=== PATIENT | female | born 1980 | race Caucasian/White ===

== ENCOUNTER 2018-07-22 19:33 | Emergency (ER) | payer SELFPAY ==
[~2018-07-22] VITALS: Ht 175.3 cm; Wt 62.1 kg
--- NOTE | 2018-07-22 20:33 | NUR ---
called to room,not in lobby
--- NOTE | 2018-07-22 20:42 | NUR ---
found pt in lobby, pt to room now.
[2018-07-22 20:51] VITALS: BP 120/92
--- NOTE | 2018-07-22 20:51 | NUR ---
PT TO ED FOR GENERALIZED ABD PAIN, WORSE IN R LOWER QUADRANT AND RIGHT FLANK. CURRENTLY HAS BEEN DIAGNOSED WITH R HYDRONEPHROSIS. PT ALSO STATES SHE IS A PT OF DR. CONTRERAS FOR PAIN MANAGEMENT FOR KIDNEY PAIN. PT TAKES KETAMINE AND NORCO REGULARLY SINCE APRIL, RECENTLY INCREASED DOSE. PT STATES MEDS ARE JUST NOT WORKING ANYMORE. CONNECTED TO MONITORS. VSS. AT BEDSIDE. AWAITING MD ASSESSMENT AT THIS TIME. CALL LIGHT WITHIN REACH.
--- NOTE | 2018-07-22 21:18 | NUR ---
md to bedside for assessment.
== END 2018-07-22 21:51 | disposition left against medical advice (07) ==
LOC: ED 21:45
DX: R10.84 Generalized abdominal pain (principal)
CPT/HCPCS: 74021; 99283

== ENCOUNTER 2018-09-05 15:43 | Emergency (ER) | payer BC, MEDICARE ==
[~2018-09-05] VITALS: Ht 175.3 cm; Wt 56.9 kg
[2018-09-05 16:13] LABS: BASOPHILS # (AUTO) 0.03 x10^3/uL (0-0.1); BASOPHILS % (AUTO) 0 % (0-1); EOSINOPHILS # (AUTO) 0.17 x10^3/uL (0-0.4); EOSINOPHILS % (AUTO) 2 % (1-7); LYMPHOCYTES # (AUTO) 2.47 x10^3/uL (1-3.4); LYMPHOCYTES % (AUTO) 29 % (22-44); MD NO; MEAN CORPUSCULAR HEMOGLOBIN 31.6 pg (27.0-34.8); MEAN CORPUSCULAR HGB CONC 32.7 g/dL (32.4-35.8); MEAN CORPUSCULAR VOLUME 96.5 fL (80-100); MONOCYTES # (AUTO) 0.87 x10^3/uL (0.2-0.8); MONOCYTES % (AUTO) 10 % (2-9); NEUTROPHILS # (AUTO) 5.04 x10^3/uL (1.8-6.8); NEUTROPHILS % (AUTO) 59 % (42-75); PLATELET COUNT 304 x10^3/uL (130-400); RED BLOOD COUNT 4.99 x10^6/uL (3.82-5.3); RED CELL DISTRIBUTION WIDTH 15.4 % (9.6-15.2)
--- NOTE | 2018-09-05 16:25 | NUR ---
PATIENT WRITHING IN PAIN ONCE ROOMED FROM TRIAGE. US TECH AT BEDSIDE. PATIENT INITIALLY REFUSING TO GO TO TEST IF SHE IS NOT MEDICATED FIRST. US TECH CONVINCED PATIENT IMPORTANCE OF PROMPT EXAM. PATIENT AGREEABLE. PROVIDER MADE AWARE
[2018-09-05 16:26] LABS: ALANINE AMINOTRANSFERASE 22 U/L (12-78); ALBUMIN 4.2 g/dL (3.4-5.0); ANION GAP 6 mmol/L (5-15); CALCIUM 8.7 mg/dL (8.5-10.1); CHLORIDE 110 mmol/L (98-107); CREATININE 0.92 mg/dL (0.55-1.02)
[2018-09-05 16:30] LABS: ALKALINE PHOSPHATASE 117 U/L (45-117); BILIRUBIN,TOTAL 0.3 mg/dL (0.2-1.0)
--- NOTE | 2018-09-05 16:59 | NUR ---
PATIENT RETURNED FROM US. REPORTS 03/20 RLQ PAIN. HR 60, 134/76. REPORTS SHE WAS RECENTLY SEEN AT [facility] AND D/C'D WITH MUSCLE SPASM DX WHICH PATIENT AND HER MOTHER ARE QUITE UNHAPPY WITH. REPORTS PAIN AT 10 REFRATORY TO ROUGHLY 250MG OF PO KETAMINE (SCHEDULED MED) AT 1PM. PROVIDER AWARE/TO BEDSIDE. PIV DEFERRRED AT THIS TIME AFTER DISCUSSION WITH PROVIDER
[2018-09-05] MEDS ORDERED: DULO60CA7 PO (17:28)
[2018-09-05] MEDS ORDERED: GABA300C10 PO (17:28)
[2018-09-05] MEDS ORDERED: BACL-19 PO (17:28)
[2018-09-05] MEDS ORDERED: CLON2TAB PO (17:28)
[2018-09-05] MEDS ORDERED: [UNRECOGNIZED DRUG - CODE] PO (17:28)
[2018-09-05] MEDS ORDERED: ESZO2TAB22 PO (17:28)
[2018-09-05] MEDS ORDERED: PRAZ5CAP2 PO (17:28)
[2018-09-05] MEDS ORDERED: HYOS0.1268 PO (17:29)
--- NOTE | 2018-09-05 17:29 | NUR ---
PATIENT PROVIDED WITH HOT PACK TO EASE CRAMPING. MED REC UPDATED. VSS. IN BED W/ CALL ZAMBRANO IN HAND/ SIDE RAILS UP. CONTINUES TO MOAN IN PAIN RATING RLQ/RUQ ABD PAIN AT 10-PROVIDER AWARE
[2018-09-05] MEDS ORDERED: HALOPERIDOL 5 MG/ML IM ONE (17:30)
--- NOTE | 2018-09-05 18:00 | NUR ---
TO ADMIN HALDOL AFTER EKG. TECH TO BEDSIDE TO PERFORM. PATIENT REMAINS IN 10/10 PAIN (REPORTS HOT PACK NO LONGER HELPING). ON MONITOR. IN BED WITH CALL ZAMBRANO IN HAND/SIDE RAILS UP
[2018-09-05] MEDS ORDERED: HALOPERIDOL 5 MG/ML ONE (18:16)
[2018-09-05 18:33] VITALS: BP 113/82
[2018-09-05 18:53] LABS: MICROSCOPIC INDICATED
--- NOTE | 2018-09-05 19:04 | NUR ---
PAIN IMPROVED. PATIENT NO LONGER WRITHING IN PAIN (NOW SLEEPING) PROVIDER AWARE. VSS ON SCIENCE EDUCATION PROFESSOR W/ CALL ZAMBRANO IN HAND/SIDE RAILS UP.
[2018-09-05 19:16] LABS: CULTURE INDICATED? NO
--- NOTE | 2018-09-05 19:20 | NUR ---
PROVIDER TO BEDSIDE TO EXPLAIN DECISION TO DISCHARGE. PATIENT UPSET "I SPECIFICALLY CAME HERE TO GET ADMITTED TO SEE GI." PROVIDER EXPLAINED HOW THIS WAS POSSIBLE. PATIENT THEN DECIDED SHE WANTED TO LEAVE IMMEDIATELY. REFUSED TO SIGN AMA PAPERWORK. BOILER INSTALLER/PROVIDER MADE AWARE. NO PIV IN PLACE. NO NARCOTICS ADMINISTERED IN ED
[2018-09-06] MEDS ORDERED: MORP15TA PO (12:53)
[2018-09-06] MEDS ORDERED: BACL-19 PO (12:53)
[2018-09-06] MEDS ORDERED: Ketamine PO (12:53)
[2018-09-06] MEDS ORDERED: ONDA4TAB7 SL (12:53)
[2018-09-06] MEDS ORDERED: HYDR-3307 PO (12:53)
[2018-09-06] MEDS ORDERED: ZOLP-413 PO (12:53)
== END 2018-09-05 20:02 | disposition left against medical advice (07) ==
LOC: ED 19:56
DX: G89.29 Other chronic pain (principal); R10.84 Generalized abdominal pain
CPT/HCPCS: 36415; 76700; 80053; 81001; 83690; 84703; 85025; 93005; 96372; 99284; J1630

== ENCOUNTER 2018-09-06 04:48 | Inpatient (IN) | payer BC, MEDICARE ==
[~2018-09-06] VITALS: Ht 177.8 cm; Wt 61.4 kg
[~2018-09-06 04:48] MED LIST: BACL-19 PO; CLON2TAB PO; DULO60CA7 PO; ESZO2TAB22 PO; GABA300C10 PO; HYOS0.1268 PO; PRAZ5CAP2 PO; [UNRECOGNIZED DRUG - CODE] PO
--- NOTE | 2018-09-06 04:53 | NUR ---
pt xena from hospital last evening
--- NOTE | 2018-09-06 05:21 | NUR ---
PT. BIB [facility] FOR C/O ABD PAIN SINCE ; PT. REPORTS PAIN HAS BEEN 24/7 SINCE JUL. PT. IS SCHEDULED FOR HIDA SCAN ON SUNDAY. WAS SEEN HERE EARLIER TONIGHT AND D/C HOME. PT. REPORTS "SHE HAS BEEN VOMITING ALOT AND SHE HASN'T EVEN BEEN INGESTING ANY FOOD/LIQUID". PT. CONTINUALLY MOANING. RECEIVED 200MCG FENTANYL EN ROUTE AND TOOK 125 OF ORAL KETAMINE PRIOR TO [facility] ARRIVAL. PT. ASTRID CONTINULLY STATES TO THIS RN "EVERYONE IS JUST TREATING HER LIKE A DRUG SEEKER". PT. VERY FRUSTRATED WITH THIS RN HE KEEPS STATING "SOMETHING IS WRONG WITH HER AND YOU GUYS ARE MISSING SOMETHING. ALL SHE DOES IS MOAN ALL THE TIME AND SHE NEVER EATS ANYTHING." THIS RN ATTEMPED TO LEAVE ROOM AND PT. STATES "YOU NEED TO UNDERSTAND WHAT I AM TRYING TO CONVEY TO YOU!" PT. AND ASSURED THAT A PROVIDER WOULD BE IN TO EVAL PT. AND DISCUSS POC. PT. STATES "YOU NEED TO UNDERSTAND BECAUSE I HAVE TO GO TO WORK, I HAVE ALREADY MISSED 3 DAYS OF WORK TO BE WITH MY IN THE HOSPITAL AND I CAN'T WAIT FOR A DRJaya TO COME IN TO EVAL HER BEFORE I LEAVE!". INFORMED PT. THAT THIS RN WOULD ADDRESS HIS CONCERS WITH ERP.
--- NOTE | 2018-09-06 05:24 | NUR ---
UPON ARRIVAL TO ED PT. PLACED ON CONTINUOUS PULSE OX AND B/P MONITORS. IV IN PLACE BY EMS.
[2018-09-06] MEDS ORDERED: SODIUM CHLORIDE 0.9% 1,000ML IVBOLUS ONE (05:30)
[2018-09-06] MEDS ORDERED: ONDANSETRON 2MG/ML, 2ML IVPush ONE (05:30)
[2018-09-06] MEDS ORDERED: SODIUM CHLORIDE FLUSH 10ML SYR IVF ONE (05:30)
[2018-09-06] MEDS ORDERED: HYDROmorphone 1 MG/ML, 1ML AMP ONE ×2 (05:48→06:39)
[2018-09-06] MEDS ORDERED: ONDANSETRON 2MG/ML, 2ML ONE (05:48)
[2018-09-06] MEDS: HYDROmorphone 2 MG/ML, 1ML IVPush PRN ×2 (06:00→06:59)
--- NOTE | 2018-09-06 06:02 | NUR ---
IZABEL ISSA IN USE. IVF INFUSING, PT. MEDICATED PER MAR.
[2018-09-06 06:24] LABS: INTERNATIONAL NORMALIZED RATIO 1.02 (0.93-1.1); PROTHROMBIN TIME 10.7 Seconds (9.6-11.5)
--- NOTE | 2018-09-06 06:26 | NUR ---
PT. REPORTS THE PAIN MED DID NOT HELP AT ALL; 2ND DOES TO BE ADMIN. PT. CONTINUES MOAING NON-STOP.
[2018-09-06 06:27] LABS: ALBUMIN 3.7 g/dL (3.4-5.0); ANION GAP 4 mmol/L (5-15); CALCIUM 8.3 mg/dL (8.5-10.1); CHLORIDE 111 mmol/L (98-107)
[2018-09-06 06:30] LABS: BASOPHILS # (AUTO) 0.02 x10^3/uL (0-0.1); BASOPHILS % (AUTO) 0 % (0-1); EOSINOPHILS # (AUTO) 0.11 x10^3/uL (0-0.4); EOSINOPHILS % (AUTO) 1 % (1-7); LYMPHOCYTES # (AUTO) 0.91 x10^3/uL (1-3.4); LYMPHOCYTES % (AUTO) 12 % (22-44); MD NO; MEAN CORPUSCULAR HEMOGLOBIN 32.6 pg (27.0-34.8); MEAN CORPUSCULAR HGB CONC 33.6 g/dL (32.4-35.8); MEAN CORPUSCULAR VOLUME 97.2 fL (80-100); MEAN PLATELET VOLUME 9.3 fL (7.4-10.4); MONOCYTES # (AUTO) 0.65 x10^3/uL (0.2-0.8); MONOCYTES % (AUTO) 8 % (2-9); NEUTROPHILS # (AUTO) 6.24 x10^3/uL (1.8-6.8); NEUTROPHILS % (AUTO) 79 % (42-75); PLATELET COUNT 213 x10^3/uL (130-400); RED BLOOD COUNT 4.34 x10^6/uL (3.82-5.3); RED CELL DISTRIBUTION WIDTH 14.9 % (9.6-15.2)
[2018-09-06 06:31] LABS: ALANINE AMINOTRANSFERASE 26 U/L (12-78); ALKALINE PHOSPHATASE 104 U/L (45-117); BILIRUBIN,TOTAL 0.4 mg/dL (0.2-1.0); CREATININE 0.78 mg/dL (0.55-1.02); TOTAL PROTEIN 6.8 g/dL (6.4-8.2)
--- NOTE | 2018-09-06 06:40 | NUR ---
THIS RN IN AT THIS TIME TO ADMIN 2ND DOSE OF PAIN MEDS; PT. IS OUT OF ROOM FOR IMAGING. WILL AWAIT RETURN.
[2018-09-06] MEDS ORDERED: OMNIPAQUE 350 MG/ML, 100ML BOTTLE ONE (07:06)
--- NOTE | 2018-09-06 07:08 | NUR ---
BS REPORT TO KURT FORD.
--- NOTE | 2018-09-06 07:12 | NUR ---
PT ON COMMODE, PT CONTINUALLY MOANS IN PAIN. MEDICATIONS ADMINISTERED PER EMAR BY BLAS HICKS.
--- NOTE | 2018-09-06 07:14 | NUR ---
RECEIVED BEDSIDE REPORT FROM KURT BLOUNT. PT ASKING THIS RN TO STEP OUT WHILE TRYING TO GIVE UA ON COMMODE.
--- NOTE | 2018-09-06 07:25 | NUR ---
PT STATES "SORRY, I CAN'T GO TO THE BATHROOM RIGHT NOW." PT BACK ON DAPHNIE. WILL CONTINUE TO MONITOR.
--- NOTE | 2018-09-06 08:13 | NUR ---
PT RESTING ON GURNEY. ED PROVIDERS BEDSIDE. PT VERBALIZES UNDERSTANDING REGARDING POC. VSS. NO ACUTE DISTRESS NOTED.
--- NOTE | 2018-09-06 08:42 | NUR ---
UA PROVIDED. SENT TO LAB. PT OUT OF ROOM AT THIS TIME.
--- NOTE | 2018-09-06 09:16 | NUR ---
PT BACK FROM MRI. PT REATTACHED TO ALL MONITORS. PT LAYING ON GURNEY. AWAITING ROOM ASSIGNMENT. WILL CONTINUE TO MONITOR.
[2018-09-06 09:30] LABS: CULTURE INDICATED? YES; MICROSCOPIC INDICATED
--- NOTE | 2018-09-06 10:07 | NUR ---
REPORT TO KURT HUFF. ALL QUESTIONS ANSWERED.
--- NOTE | 2018-09-06 10:18 | NUR ---
PT TRANSFERRED TO FLOOR. PT LEFT WITH ALL PERSONAL BELONGINGS.
[2018-09-06] MEDS ORDERED: GABAPENTIN 300 MG CAPSULE PO PRN (10:30)
[2018-09-06] MEDS: NICOTINE 14MG/24 HR PATCH.TD24 TD SCH (10:30)
[2018-09-06] MEDS ORDERED: BACLOFEN 10 MG TABLET PO SCH (11:00)
[2018-09-06 11:13] LABS: HCT (SEDRATE) 42.9 % (34.6-47.8)
[2018-09-06 11:31] VITALS: BP 114/73
[2018-09-06] MEDS ORDERED: MORP15TA PO (12:53)
[2018-09-06] MEDS ORDERED: ZOLP-413 PO (12:53)
[2018-09-06] MEDS ORDERED: HYDR-3307 PO (12:53)
[2018-09-06] MEDS ORDERED: Ketamine PO (12:53)
[2018-09-06] MEDS ORDERED: BACL-19 PO (12:53)
[2018-09-06] MEDS ORDERED: ONDA4TAB7 SL (12:53)
[2018-09-06] MEDS ORDERED: HYDROmorphone 2 MG/ML, 1ML ONE ×3 (13:09→22:46)
[2018-09-06] MEDS: HYDROmorphone 1 MG/ML, 1ML AMP IV PRN ×3 (13:14→22:54)
[2018-09-06] MEDS: LACTATED RINGERS 1,000 ML IV SCH (13:16)
[2018-09-06 13:20] VITALS: BP 117/80
[2018-09-06] MEDS: PROMETHAZINE 25MG TABLET PO PRN ×2 (15:23→20:33)
[2018-09-06 19:32] VITALS: BP 124/87
[2018-09-06] MEDS: BACLOFEN 10 MG TABLET PO SCH (20:24)
[2018-09-06] MEDS: PRAZOSIN 2 MG CAPSULE PO SCH (20:25)
[2018-09-06] MEDS: GABAPENTIN 300 MG CAPSULE PO PRN (20:26)
[2018-09-06] MEDS ORDERED: PRAZOSIN 5 MG CAPSULE PO SCH (21:00)
[2018-09-07] MEDS: LACTATED RINGERS 1,000 ML IV SCH ×2 (02:28→15:38)
[2018-09-07 02:29] VITALS: BP 109/67
[2018-09-07] MEDS ORDERED: HYDROmorphone 2 MG/ML, 1ML ONE ×2 (02:33→07:16)
[2018-09-07] MEDS: PROMETHAZINE 25MG TABLET PO PRN (02:40)
[2018-09-07] MEDS: HYDROmorphone 1 MG/ML, 1ML AMP IV PRN ×2 (02:41→07:23)
[2018-09-07 05:45] LABS: BASOPHILS # (AUTO) 0.02 x10^3/uL (0-0.1); BASOPHILS % (AUTO) 0 % (0-1); EOSINOPHILS # (AUTO) 0.17 x10^3/uL (0-0.4); EOSINOPHILS % (AUTO) 3 % (1-7); LYMPHOCYTES % (AUTO) 26 % (22-44); MD NO; MEAN CORPUSCULAR HEMOGLOBIN 32.7 pg (27.0-34.8); MEAN CORPUSCULAR HGB CONC 34.2 g/dL (32.4-35.8); MEAN CORPUSCULAR VOLUME 95.6 fL (80-100); MEAN PLATELET VOLUME 9.1 fL (7.4-10.4); MONOCYTES % (AUTO) 9 % (2-9); NEUTROPHILS # (AUTO) 3.24 x10^3/uL (1.8-6.8); NEUTROPHILS % (AUTO) 61 % (42-75); PLATELET COUNT 183 x10^3/uL (130-400); RED BLOOD COUNT 3.86 x10^6/uL (3.82-5.3); RED CELL DISTRIBUTION WIDTH 15.4 % (9.6-15.2)
[2018-09-07 05:48] LABS: ALANINE AMINOTRANSFERASE 56 U/L (12-78); ALBUMIN 3.2 g/dL (3.4-5.0); ANION GAP 4 mmol/L (5-15); CALCIUM 7.8 mg/dL (8.5-10.1); CHLORIDE 113 mmol/L (98-107); CREATININE 0.68 mg/dL (0.55-1.02)
[2018-09-07 05:50] LABS: ALKALINE PHOSPHATASE 104 U/L (45-117); BILIRUBIN,TOTAL 0.4 mg/dL (0.2-1.0); TOTAL PROTEIN 5.9 g/dL (6.4-8.2)
[2018-09-07 05:57] LABS: CHOL/HDL RATIO 2.9; LDL/HDL RATIO 1.5 (0.5-3.0)
[2018-09-07 07:14] VITALS: BP 119/80
[2018-09-07] MEDS ORDERED: PANTOPRAZOLE 40 MG IV IVPush SCH (07:30)
[2018-09-07] MEDS: DULOXETINE 30 MG CAPSULE.DR PO SCH (08:48)
[2018-09-07] MEDS: BACLOFEN 10 MG TABLET PO SCH ×2 (08:48→22:02)
[2018-09-07] MEDS: HYDROmorphone 2 MG/ML, 1ML IV PRN ×5 (08:57→23:41)
[2018-09-07] MEDS ORDERED: HYOSCYAMINE 0.125 MG TABLET PO SCH (09:00)
[2018-09-07] MEDS: NICOTINE 14MG/24 HR PATCH.TD24 TD SCH (10:30)
[2018-09-07] MEDS: ENOXAPARIN 40 MG/0.4 ML SQ SCH (10:43)
[2018-09-07 14:00] VITALS: BP 125/82
[2018-09-07] MEDS: OMEPRAZOLE 20 MG CAPSULE.DR PO SCH (18:14)
[2018-09-07] MEDS: HYOSCYAMINE 0.125 MG TABLET PO PRN (18:14)
[2018-09-07 18:29] VITALS: BP 131/82
[2018-09-07] MEDS: PRAZOSIN 2 MG CAPSULE PO SCH (22:02)
[2018-09-07] MEDS: GABAPENTIN 300 MG CAPSULE PO PRN (22:05)
[2018-09-08 00:23] VITALS: BP 116/72
[2018-09-08] MEDS: HYDROmorphone 2 MG/ML, 1ML IV PRN ×7 (03:38→22:55)
[2018-09-08] MEDS: LACTATED RINGERS 1,000 ML IV SCH ×2 (04:44→19:10)
[2018-09-08] MEDS: HYOSCYAMINE 0.125 MG TABLET PO PRN ×3 (04:51→19:11)
[2018-09-08] MEDS: OMEPRAZOLE 20 MG CAPSULE.DR PO SCH (04:51)
[2018-09-08 06:08] LABS: ALBUMIN 3.1 g/dL (3.4-5.0); ANION GAP 5 mmol/L (5-15); CALCIUM 8.2 mg/dL (8.5-10.1); CHLORIDE 109 mmol/L (98-107)
[2018-09-08 06:11] LABS: ALANINE AMINOTRANSFERASE 36 U/L (12-78); ALKALINE PHOSPHATASE 91 U/L (45-117); BILIRUBIN,TOTAL 0.4 mg/dL (0.2-1.0); CREATININE 0.66 mg/dL (0.55-1.02); TOTAL PROTEIN 5.8 g/dL (6.4-8.2)
[2018-09-08 07:41] VITALS: BP 99/60
[2018-09-08] MEDS: DULOXETINE 30 MG CAPSULE.DR PO SCH (09:47)
[2018-09-08] MEDS: BACLOFEN 10 MG TABLET PO SCH ×2 (09:47→20:59)
[2018-09-08] MEDS: NICOTINE 14MG/24 HR PATCH.TD24 TD SCH (10:30)
[2018-09-08] MEDS: ENOXAPARIN 40 MG/0.4 ML SQ SCH (10:30)
[2018-09-08 14:00] VITALS: BP 112/62
[2018-09-08] MEDS ORDERED: HYDR25TA11 PO (18:03)
[2018-09-08] MEDS: PRAZOSIN 2 MG CAPSULE PO SCH (20:53)
[2018-09-08] MEDS: GABAPENTIN 300 MG CAPSULE PO PRN (20:59)
[2018-09-08 21:06] VITALS: BP 119/80
[2018-09-09 02:39] VITALS: BP 103/63
[2018-09-09] MEDS: HYDROmorphone 2 MG/ML, 1ML IV PRN ×4 (02:40→12:05)
[2018-09-09] MEDS: OMEPRAZOLE 20 MG CAPSULE.DR PO SCH (05:45)
[2018-09-09 07:10] VITALS: BP 106/66
[2018-09-09] MEDS: DULOXETINE 30 MG CAPSULE.DR PO SCH (08:59)
[2018-09-09] MEDS: BACLOFEN 10 MG TABLET PO SCH ×2 (08:59→20:01)
[2018-09-09] MEDS: LACTATED RINGERS 1,000 ML IV SCH ×2 (09:02→22:12)
[2018-09-09] MEDS: NICOTINE 14MG/24 HR PATCH.TD24 TD SCH (10:30)
[2018-09-09] MEDS: ENOXAPARIN 40 MG/0.4 ML SQ SCH (10:30)
[2018-09-09 10:32] LABS: ALBUMIN 3.1 g/dL (3.4-5.0); ANION GAP 3 mmol/L (5-15); CALCIUM 8.3 mg/dL (8.5-10.1); CHLORIDE 111 mmol/L (98-107)
[2018-09-09 10:36] LABS: ALANINE AMINOTRANSFERASE 31 U/L (12-78); ALKALINE PHOSPHATASE 85 U/L (45-117); BILIRUBIN,TOTAL 0.3 mg/dL (0.2-1.0); CREATININE 0.62 mg/dL (0.55-1.02); TOTAL PROTEIN 5.7 g/dL (6.4-8.2)
[2018-09-09 12:06] VITALS: BP 116/75
[2018-09-09] MEDS: HYOSCYAMINE 0.125 MG TABLET PO PRN ×2 (12:14→22:09)
[2018-09-09 12:32] VITALS: BP 112/75
[2018-09-09] MEDS ORDERED: HYDROmorphone 2 MG/ML, 1ML ONE ×4 (15:02→22:05)
[2018-09-09] MEDS: HYDROmorphone 1 MG/ML, 1ML AMP IV PRN ×4 (15:09→22:08)
[2018-09-09 19:04] VITALS: BP 125/73
[2018-09-09] MEDS: GABAPENTIN 300 MG CAPSULE PO PRN (20:00)
[2018-09-09] MEDS: PRAZOSIN 2 MG CAPSULE PO SCH (20:00)
[2018-09-10] MEDS ORDERED: HYDROmorphone 2 MG/ML, 1ML ONE ×9 (00:21→22:21)
[2018-09-10] MEDS: HYDROmorphone 1 MG/ML, 1ML AMP IV PRN ×12 (00:26→22:32)
[2018-09-10 01:23] VITALS: BP 98/62
[2018-09-10] MEDS: OMEPRAZOLE 20 MG CAPSULE.DR PO SCH (05:15)
[2018-09-10 06:03] LABS: BASOPHILS # (AUTO) 0.01 x10^3/uL (0-0.1); BASOPHILS % (AUTO) 0 % (0-1); EOSINOPHILS % (AUTO) 5 % (1-7); LYMPHOCYTES # (AUTO) 2.11 x10^3/uL (1-3.4); LYMPHOCYTES % (AUTO) 34 % (22-44); MD NO; MEAN CORPUSCULAR HEMOGLOBIN 32.6 pg (27.0-34.8); MEAN CORPUSCULAR HGB CONC 33.4 g/dL (32.4-35.8); MEAN CORPUSCULAR VOLUME 97.6 fL (80-100); MEAN PLATELET VOLUME 9.5 fL (7.4-10.4); MONOCYTES # (AUTO) 0.59 x10^3/uL (0.2-0.8); MONOCYTES % (AUTO) 9 % (2-9); NEUTROPHILS # (AUTO) 3.27 x10^3/uL (1.8-6.8); NEUTROPHILS % (AUTO) 52 % (42-75); PLATELET COUNT 210 x10^3/uL (130-400); RED BLOOD COUNT 4.08 x10^6/uL (3.82-5.3); RED CELL DISTRIBUTION WIDTH 14.7 % (9.6-15.2)
[2018-09-10 06:13] LABS: ALANINE AMINOTRANSFERASE 35 U/L (12-78); ALBUMIN 3.6 g/dL (3.4-5.0); ANION GAP 4 mmol/L (5-15); CALCIUM 8.5 mg/dL (8.5-10.1); CHLORIDE 109 mmol/L (98-107); CREATININE 0.69 mg/dL (0.55-1.02)
[2018-09-10 06:15] LABS: ALKALINE PHOSPHATASE 96 U/L (45-117); BILIRUBIN,TOTAL 0.4 mg/dL (0.2-1.0); TOTAL PROTEIN 6.5 g/dL (6.4-8.2)
[2018-09-10 07:34] VITALS: BP 110/70
[2018-09-10] MEDS: DULOXETINE 30 MG CAPSULE.DR PO SCH (07:39)
[2018-09-10] MEDS: BACLOFEN 10 MG TABLET PO SCH ×2 (07:39→20:07)
[2018-09-10] MEDS ORDERED: MIDAZOLAM 1 MG/ML, 2ML ONE (09:05)
[2018-09-10] MEDS ORDERED: FENTANYL PF 100 MCG/2ML ONE ×2 (09:06→10:20)
[2018-09-10] MEDS ORDERED: ROCURONIUM 10MG/ML,5ML ONE (09:17)
[2018-09-10] MEDS ORDERED: SUCCINYLCHOLINE 20 MG/ML, 10ML ONE (09:17)
[2018-09-10] MEDS ORDERED: PROPOFOL 10 MG/ML, 20ML ONE (09:17)
[2018-09-10] MEDS ORDERED: ONDANSETRON 2MG/ML, 2ML ONE ×3 (09:18→10:20)
[2018-09-10] MEDS ORDERED: DEXAMETHASONE 4 MG/ML, 1ML ONE ×2 (09:18)
[2018-09-10] MEDS ORDERED: PROMETHAZINE 25 MG/ML, 1ML IV PRN (10:00)
[2018-09-10] MEDS ORDERED: hydrALAzine 20 MG/ML, 1ML IV PRN (10:00)
[2018-09-10] MEDS ORDERED: OMNIPAQUE 350 MG/ML, 50 ML BOTTLE ONE (10:00)
[2018-09-10] MEDS ORDERED: METOCLOPRAMIDE 5 MG/ML, 2ML IV PRN (10:00)
[2018-09-10] MEDS ORDERED: ONDANSETRON 2MG/ML, 2ML IVPush PRN (10:00)
[2018-09-10] MEDS ORDERED: MEPERIDINE/PF 25MG/0.5ML IVPush PRN (10:00)
[2018-09-10] MEDS ORDERED: KETOROLAC 30 MG/1 ML IV PRN (10:00)
[2018-09-10] MEDS ORDERED: ALBUTEROL SULFATE 2.5 MG/3 ML NPPB PRN (10:00)
[2018-09-10] MEDS ORDERED: OXYcodone 5 MG/5 ML ORAL.SOL UDC PO PRN (10:00)
[2018-09-10] MEDS ORDERED: LABETALOL 5MG/ML, 20ML IV PRN (10:00)
[2018-09-10] MEDS ORDERED: INDOMETHACIN 50 MG SUPP.RECT ONE (10:21)
[2018-09-10] MEDS: ENOXAPARIN 40 MG/0.4 ML SQ SCH (10:23)
[2018-09-10] MEDS: NICOTINE 14MG/24 HR PATCH.TD24 TD SCH (10:24)
[2018-09-10] MEDS: FENTANYL PF 100 MCG/2ML IV PRN ×3 (10:25→10:59)
[2018-09-10] MEDS ORDERED: INDOMETHACIN 50 MG SUPP.RECT PR ONE (10:30)
[2018-09-10] MEDS: LACTATED RINGERS 1,000 ML IV SCH (10:40)
[2018-09-10] MEDS ORDERED: LACTATED RINGERS 1,000 ML IVBOLUS ONE (11:00)
[2018-09-10] MEDS ORDERED: POTASSIUM CHLORIDE 20 MEQ TAB.ER.PRT PO ONE (11:30)
[2018-09-10 12:55] VITALS: BP 142/89
[2018-09-10 19:03] VITALS: BP 120/81
[2018-09-10] MEDS: GABAPENTIN 300 MG CAPSULE PO PRN (20:07)
[2018-09-10] MEDS: PRAZOSIN 2 MG CAPSULE PO SCH (20:07)
[2018-09-11 02:03] VITALS: BP 96/59
[2018-09-11] MEDS ORDERED: HYDROmorphone 2 MG/ML, 1ML ONE ×4 (02:04→15:50)
[2018-09-11] MEDS: HYDROmorphone 1 MG/ML, 1ML AMP IV PRN ×4 (02:07→15:52)
[2018-09-11] MEDS: LACTATED RINGERS 1,000 ML IV SCH ×2 (02:08→16:00)
[2018-09-11] MEDS: OMEPRAZOLE 20 MG CAPSULE.DR PO SCH (06:24)
[2018-09-11 07:07] LABS: BASOPHILS # (AUTO) 0.02 x10^3/uL (0-0.1); BASOPHILS % (AUTO) 0 % (0-1); EOSINOPHILS # (AUTO) 0.21 x10^3/uL (0-0.4); EOSINOPHILS % (AUTO) 4 % (1-7); LYMPHOCYTES # (AUTO) 1.38 x10^3/uL (1-3.4); LYMPHOCYTES % (AUTO) 28 % (22-44); MD NO; MEAN CORPUSCULAR HEMOGLOBIN 32.9 pg (27.0-34.8); MEAN CORPUSCULAR HGB CONC 33.9 g/dL (32.4-35.8); MEAN PLATELET VOLUME 9.5 fL (7.4-10.4); MONOCYTES # (AUTO) 0.36 x10^3/uL (0.2-0.8); MONOCYTES % (AUTO) 7 % (2-9); NEUTROPHILS # (AUTO) 3.03 x10^3/uL (1.8-6.8); NEUTROPHILS % (AUTO) 61 % (42-75); PLATELET COUNT 177 x10^3/uL (130-400); RED BLOOD COUNT 3.72 x10^6/uL (3.82-5.3); RED CELL DISTRIBUTION WIDTH 14.9 % (9.6-15.2)
[2018-09-11 07:11] LABS: CALCIUM 8.1 mg/dL (8.5-10.1); CHLORIDE 112 mmol/L (98-107)
[2018-09-11 07:15] LABS: ALANINE AMINOTRANSFERASE 34 U/L (12-78); ALKALINE PHOSPHATASE 85 U/L (45-117); BILIRUBIN,TOTAL 0.3 mg/dL (0.2-1.0); CREATININE 0.68 mg/dL (0.55-1.02); TOTAL PROTEIN 5.5 g/dL (6.4-8.2)
[2018-09-11 07:24] LABS: ANION GAP 6 mmol/L (5-15)
[2018-09-11 07:28] VITALS: BP 103/62
[2018-09-11 09:15] VITALS: BP 109/66
[2018-09-11] MEDS: DULOXETINE 30 MG CAPSULE.DR PO SCH (09:37)
[2018-09-11] MEDS: BACLOFEN 10 MG TABLET PO SCH (09:38)
[2018-09-11] MEDS: ENOXAPARIN 40 MG/0.4 ML SQ SCH (10:30)
[2018-09-11] MEDS: NICOTINE 14MG/24 HR PATCH.TD24 TD SCH (10:30)
[2018-09-11] MEDS: HYOSCYAMINE 0.125 MG TABLET PO PRN (11:42)
[2018-09-11 14:47] VITALS: BP 120/82
== END 2018-09-11 18:53 | disposition home or self-care (01) | DRG 444 ==
LOC: ED 08:36 → EDIP 09:07 → 3NW 10:15 → 4EST 11:52
PROVIDERS: ADMIT Internal Medicine; ATTEND Internal Medicine
PROC: 0F998ZZ Drainage of Common Bile Duct, Via Natural or Artificial Opening Endoscopic (ICD-10-PCS; 2018-09-10)
PROC: 0F798ZZ Dilation of Common Bile Duct, Via Natural or Artificial Opening Endoscopic (ICD-10-PCS; principal; 2018-09-10 09:30)
DX: K83.8 Other specified diseases of biliary tract (principal); E43 Unspecified severe protein-calorie malnutrition; Q62.0 Congenital hydronephrosis; Z68.1 Body mass index [BMI] 19.9 or less, adult; E87.6 Hypokalemia; F17.210 Nicotine dependence, cigarettes, uncomplicated; F41.9 Anxiety disorder, unspecified; I45.81 Long QT syndrome; G89.29 Other chronic pain; R62.7 Adult failure to thrive; Z88.5 Allergy status to narcotic agent; Z90.49 Acquired absence of other specified parts of digestive tract; Z79.899 Other long term (current) drug therapy
CPT/HCPCS: 36415; 74328; 96361; 99285; Q0169; 74177; 74181; 80053; 80061; 81001; 82140; 83690; 83735; 84443; 85025; 85610; 85651; 87077; 87086; 87186; 93005; 96374; 96375; 96376; G0378; J1100; J1170; J1650; J2250; J2405; J2704; J3010; Q9967; C1769; C9113; J0330; J7030; J7120

== ENCOUNTER 2018-11-30 00:58 | Emergency (ER) | payer BC, MEDICARE ==
[~2018-11-30] VITALS: Ht 175.3 cm; Wt 59.1 kg
[~2018-11-30 00:58] MED LIST changes: +HYDR-3307 PO; +HYDR25TA11 PO; +Ketamine PO; +MORP15TA PO; +ONDA4TAB7 SL; +ZOLP-413 PO
--- NOTE | 2018-11-30 02:11 | NUR ---
Care assumed of pt. Pt c/o generalized abd pain--more in upper quads since Sunday. +nausea, no vomiting. Pt also states she is feeling very distended which is unusual for her. IV access obtained. UA sent. Call light in reach. Chart up for ERP to willow.
[2018-11-30 02:16] LABS: MICROSCOPIC AUTO
[2018-11-30 02:17] LABS: CULTURE INDICATED? YES
[2018-11-30] MEDS ORDERED: ONDANSETRON 2MG/ML, 2ML IVPush ONE (02:30)
[2018-11-30] MEDS ORDERED: MORPHINE SULFATE 4 MG/ML, 1ML ONE ×2 (02:33→03:24)
[2018-11-30] MEDS ORDERED: ONDANSETRON 2MG/ML, 2ML ONE (02:33)
[2018-11-30 02:36] LABS: BASOPHILS # (AUTO) 0.03 x10^3/uL (0-0.1); BASOPHILS % (AUTO) 0 % (0-1); EOSINOPHILS # (AUTO) 0.27 x10^3/uL (0-0.4); EOSINOPHILS % (AUTO) 2 % (1-7); LYMPHOCYTES # (AUTO) 3.12 x10^3/uL (1-3.4); LYMPHOCYTES % (AUTO) 25 % (22-44); MD NO; MEAN CORPUSCULAR HEMOGLOBIN 31.2 pg (27.0-34.8); MEAN CORPUSCULAR HGB CONC 32.4 g/dL (32.4-35.8); MEAN CORPUSCULAR VOLUME 96.3 fL (80-100); MONOCYTES # (AUTO) 1.31 x10^3/uL (0.2-0.8); MONOCYTES % (AUTO) 10 % (2-9); NEUTROPHILS # (AUTO) 8.02 x10^3/uL (1.8-6.8); NEUTROPHILS % (AUTO) 63 % (42-75); PLATELET COUNT 240 x10^3/uL (130-400); RED BLOOD COUNT 4.12 x10^6/uL (3.82-5.3); RED CELL DISTRIBUTION WIDTH 15.9 % (9.6-15.2)
[2018-11-30] MEDS: MORPHINE SULFATE 4 MG/ML, 1ML IVPush PRN ×2 (02:37→03:26)
--- NOTE | 2018-11-30 02:40 | NUR ---
Upon medicating pt, pt states "did you know that I'm having CP too?" Pt states CP started approx 10 minutes ago. Pt placed on monitor and EKG requested. ERP aware--no further orders at this time. NSR on monitor. Pt remains very anxious s/t abd pain. Call light in reach.
[2018-11-30 02:44] LABS: ALANINE AMINOTRANSFERASE 28 U/L (12-78); ALBUMIN 3.8 g/dL (3.4-5.0); ANION GAP 5 mmol/L (5-15); CALCIUM 8.3 mg/dL (8.5-10.1); CHLORIDE 109 mmol/L (98-107); CREATININE 0.73 mg/dL (0.55-1.02)
[2018-11-30 02:49] LABS: ALKALINE PHOSPHATASE 98 U/L (45-117); BILIRUBIN,TOTAL 0.2 mg/dL (0.2-1.0); TOTAL PROTEIN 7.2 g/dL (6.4-8.2)
--- NOTE | 2018-11-30 03:14 | NUR ---
[facility]
[2018-11-30] MEDS ORDERED: OMNIPAQUE 350 MG/ML, 100ML BOTTLE ONE (03:18)
--- NOTE | 2018-11-30 03:30 | NUR ---
Pt back from CT. Pt remains very anxious. states pain in chest is worse. Pt medicated per MAR. PT then becomes more anxious, hyperventilating, and stating that her CP is really bad. Remains NSR on monitor in 70's. VSS. Discussed with ERP--no new orders at this time.
--- NOTE | 2018-11-30 04:10 | NUR ---
Pt now dozing intermittently. States abd pain improved. CP is intermittent. Pt appears drowsy. No acute changes noted on monitor. VSS. Call light in reach. Chart up for recheck.
[2018-11-30] MEDS ORDERED: PROMETHAZINE 25 MG/ML, 1ML ONE (05:06)
--- NOTE | 2018-11-30 05:10 | NUR ---
Upon entering room to d/c pt. Pt attempting to vomit into a bedpan. No vomit noted. Pt gagging. Discussed with ERP. Order for phenergan received. Pt medicated per AUG. Pt ambulates to BR with steady gait. Pt to be d/c after recheck.
[2018-11-30] MEDS ORDERED: PROMETHAZINE 25 MG/ML, 1ML IM ONE (05:30)
[2018-11-30 05:38] VITALS: BP 133/83
== END 2018-11-30 05:41 | disposition home or self-care (01) ==
LOC: ED 01:31
DX: N30.00 Acute cystitis without hematuria (principal); N83.291 Other ovarian cyst, right side; Z90.49 Acquired absence of other specified parts of digestive tract
CPT/HCPCS: 36415; 74177; 80053; 81001; 83690; 84703; 85025; 87077; 87086; 87186; 93005; 96372; 96374; 96375; 96376; 99284; J2270; J2405; J2550; Q9967

== ENCOUNTER 2018-12-10 13:25 | Inpatient (IN) | payer BC, MEDICARE ==
[~2018-12-10] VITALS: Ht 175.3 cm; Wt 53.0 kg
[2018-12-10] MEDS ORDERED: SODIUM CHLORIDE 0.9% 1,000 ML IV ONE ×2 (13:51→16:25)
[2018-12-10] MEDS ORDERED: SODIUM CHLORIDE FLUSH 10ML SYR IVF ONE ×2 (14:00)
[2018-12-10] MEDS ORDERED: ONDANSETRON 2MG/ML, 2ML IVPush ONE (14:00)
[2018-12-10] MEDS ORDERED: ONDANSETRON 2MG/ML, 2ML ONE (14:09)
[2018-12-10] MEDS ORDERED: HYDROmorphone 2 MG/ML, 1ML ONE ×2 (14:09→16:48)
[2018-12-10] MEDS: HYDROmorphone 2 MG/ML, 1ML IVPush PRN ×2 (14:13→15:21)
--- NOTE | 2018-12-10 14:23 | NUR ---
PT MEDICATED FOR PAIN AND NAUSEA. VSS.
[2018-12-10 14:25] LABS: MEAN CORPUSCULAR HEMOGLOBIN 31.2 pg (27.0-34.8); MEAN CORPUSCULAR HGB CONC 32.1 g/dL (32.4-35.8); MEAN CORPUSCULAR VOLUME 97.3 fL (80-100); MEAN PLATELET VOLUME 8.1 fL (7.4-10.4); PLATELET COUNT 342 x10^3/uL (130-400); RED CELL DISTRIBUTION WIDTH 15.8 % (9.6-15.2)
[2018-12-10 14:33] LABS: ALBUMIN 3.7 g/dL (3.4-5.0); ANION GAP 10 mmol/L (5-15); CALCIUM 9.2 mg/dL (8.5-10.1); CHLORIDE 104 mmol/L (98-107)
[2018-12-10 14:40] LABS: ALANINE AMINOTRANSFERASE 107 U/L (12-78); ALKALINE PHOSPHATASE 212 U/L (45-117); BILIRUBIN,TOTAL 0.7 mg/dL (0.2-1.0); TOTAL PROTEIN 8.4 g/dL (6.4-8.2)
[2018-12-10 14:45] LABS: MD YES
[2018-12-10 14:52] LABS: MICROSCOPIC NOT IND
[2018-12-10 15:01] LABS: CULTURE INDICATED? NO
[2018-12-10 15:12] LABS: EOS#(MANUAL) 0.74 x10^3/uL (0.0-0.4); EOS% (MANUAL) 4 % (1-7); LYMPH#(MANUAL) 1.47 x10^3/uL (1-3.4); LYMPHS% (MANUAL) 8 % (22-44); MONOS#(MANUAL) 0.92 x10^3/uL (0.3-2.7); MONOS% (MANUAL) 5 % (2-9); SEG#(MANUAL) 15.27 x10^3/uL (1.8-6.8); SEGS% (MANUAL) 83 % (42-75)
[2018-12-10 15:13] LABS: <PLATELET ESTIMATE> ADEQUATE; <RBC MORPHOLOGY> NORMAL; LARGE PLATELETS 1+
--- NOTE | 2018-12-10 15:24 | NUR ---
Patient is resting comfortably in bed. Vital Signs within normal limits.
--- NOTE | 2018-12-10 15:25 | NUR ---
PT MEDICATED FOR PAIN AND NAUSEA. VSS.
--- NOTE | 2018-12-10 16:19 | NUR ---
PT TO BE ADMITTED. POC EXPLAINED TO PT AND PT VERBALIZED UNDERSTANDING. VSS.
--- NOTE | 2018-12-10 16:27 | NUR ---
REPORT GIVEN TO
[2018-12-10] MEDS ORDERED: HALOPERIDOL 5 MG/ML IV ONE (16:30)
[2018-12-10] MEDS ORDERED: SODIUM CHLORIDE FLUSH 10ML SYR IVF PRN (16:30)
[2018-12-10] MEDS ORDERED: DIPHENHYDRAMINE 50 MG/ML, 1ML IVPush ONE (16:30)
--- NOTE | 2018-12-10 16:55 | NUR ---
PT MEDICATED FOR PAIN. VSS.
[2018-12-10] MEDS ORDERED: HYDROmorphone 2 MG/ML, 1ML IVPush PRN (17:00)
[2018-12-10 17:17] VITALS: BP 121/85
[2018-12-10] MEDS ORDERED: LACTULOSE 20 GM/30 ML UDC PO PRN (18:00)
[2018-12-10] MEDS ORDERED: BISACODYL 10 MG SUPP PR PRN (18:00)
[2018-12-10] MEDS ORDERED: NALOXONE 0.4 MG/ML, 1ML IVPush PRN (18:00)
[2018-12-10] MEDS ORDERED: HYDROmorphone PCA 30 MG/30 ML IV PRN (18:00)
[2018-12-10] MEDS: SODIUM CHLORIDE 0.9% 1,000 ML IV SCH (18:26)
[2018-12-10] MEDS ORDERED: hydrOXyzine 50MG TABLET ONE (18:36)
[2018-12-10] MEDS: ENOXAPARIN 30 MG/0.3 ML SQ SCH (18:38)
[2018-12-10 19:56] LABS: AMPHETAMINE SCREEN, URINE Negative (Negative); BARBITURATE SCREEN, URINE Negative (Negative); BENZODIAZEPINE SCREEN, URINE Negative (Negative); CANNABINOID SCREEN, URINE Negative (Negative); COCAINE SCREEN, URINE Negative (Negative); METHADONE SCREEN, URINE Negative (Negative); OPIATE SCREEN, URINE Positive (Negative)
[2018-12-10 20:05] VITALS: BP 118/81
[2018-12-10] MEDS ORDERED: SCOPOLAMINE PATCH, 1.5MG PATCH.TD72 TD ONE (20:30)
[2018-12-10] MEDS: SENNA/DOCUSATE TABLET PO SCH (22:12)
[2018-12-11 01:55] VITALS: BP 116/82
[2018-12-11 05:02] LABS: ALANINE AMINOTRANSFERASE 86 U/L (12-78); ANION GAP 6 mmol/L (5-15); CALCIUM 8.6 mg/dL (8.5-10.1); CHLORIDE 109 mmol/L (98-107); CREATININE 0.62 mg/dL (0.55-1.02)
[2018-12-11 05:05] LABS: ALKALINE PHOSPHATASE 173 U/L (45-117); BILIRUBIN,TOTAL 0.4 mg/dL (0.2-1.0); TOTAL PROTEIN 6.9 g/dL (6.4-8.2)
[2018-12-11 05:09] LABS: BASOPHILS # (AUTO) 0.07 x10^3/uL (0-0.1); BASOPHILS % (AUTO) 1 % (0-1); EOSINOPHILS # (AUTO) 0.36 x10^3/uL (0-0.4); EOSINOPHILS % (AUTO) 3 % (1-7); LYMPHOCYTES # (AUTO) 1.69 x10^3/uL (1-3.4); LYMPHOCYTES % (AUTO) 15 % (22-44); MD NO; MEAN CORPUSCULAR HEMOGLOBIN 32.4 pg (27.0-34.8); MEAN CORPUSCULAR HGB CONC 32.9 g/dL (32.4-35.8); MEAN CORPUSCULAR VOLUME 98.4 fL (80-100); MEAN PLATELET VOLUME 8.3 fL (7.4-10.4); MONOCYTES # (AUTO) 0.89 x10^3/uL (0.2-0.8); MONOCYTES % (AUTO) 8 % (2-9); NEUTROPHILS # (AUTO) 8.48 x10^3/uL (1.8-6.8); NEUTROPHILS % (AUTO) 74 % (42-75); PLATELET COUNT 300 x10^3/uL (130-400); RED BLOOD COUNT 4.18 x10^6/uL (3.82-5.3); RED CELL DISTRIBUTION WIDTH 15.8 % (9.6-15.2)
[2018-12-11] MEDS: SODIUM CHLORIDE 0.9% 1,000 ML IV SCH (06:39)
[2018-12-11] MEDS: ENOXAPARIN 30 MG/0.3 ML SQ SCH ×2 (06:39→22:03)
[2018-12-11 07:54] VITALS: BP 115/68
[2018-12-11] MEDS: DOCUSATE 100 MG CAPSULE PO SCH (09:00)
[2018-12-11] MEDS: DOCUSATE 50 MG/5 ML, 10ML UDC NG SCH (09:00)
[2018-12-11] MEDS ORDERED: SINCALIDE (KINEVAC) 5 MCG ONE (14:24)
[2018-12-11] MEDS ORDERED: OXYcodone/APAP 5/325MG TABLET PO PRN (16:30)
[2018-12-11] MEDS: morphine SULFATE 10 MG/ML, 1ML IVPush PRN ×2 (19:12→19:51)
[2018-12-11 19:45] VITALS: BP 126/84
[2018-12-11] MEDS ORDERED: HYDROmorphone 1 MG/ML, 1ML INJ IV PRN (21:30)
[2018-12-11] MEDS ORDERED: HYDROmorphone 2 MG/ML, 1ML ONE (21:58)
[2018-12-11] MEDS: SENNA/DOCUSATE TABLET PO SCH (22:03)
[2018-12-11] MEDS: HYDROmorphone PCA 30 MG/30 ML IV PRN (23:25)
[2018-12-12] MEDS: SODIUM CHLORIDE 0.9% 1,000 ML IV SCH (01:50)
[2018-12-12 02:11] VITALS: BP 115/73
[2018-12-12 06:04] LABS: ALBUMIN 3.2 g/dL (3.4-5.0); ANION GAP 6 mmol/L (5-15); CALCIUM 8.6 mg/dL (8.5-10.1); CHLORIDE 108 mmol/L (98-107)
[2018-12-12 06:09] LABS: ALANINE AMINOTRANSFERASE 92 U/L (12-78); ALKALINE PHOSPHATASE 214 U/L (45-117); BILIRUBIN,TOTAL 0.5 mg/dL (0.2-1.0); CREATININE 0.57 mg/dL (0.55-1.02); TOTAL PROTEIN 7.2 g/dL (6.4-8.2)
[2018-12-12] MEDS: NS + 20MEQ KCL 1,000 ML IV SCH ×2 (07:17→17:31)
[2018-12-12] MEDS ORDERED: SCOPOLAMINE PATCH, 1.5MG PATCH.TD72 TD ONE (08:00)
[2018-12-12 08:01] VITALS: BP 124/80
[2018-12-12] MEDS ORDERED: hydrOXyzine 50MG TABLET ONE (08:14)
[2018-12-12] MEDS: ENOXAPARIN 30 MG/0.3 ML SQ SCH ×2 (08:18→20:22)
[2018-12-12] MEDS: DOCUSATE 100 MG CAPSULE PO SCH (08:20)
[2018-12-12] MEDS: DOCUSATE 50 MG/5 ML, 10ML UDC NG SCH (08:20)
[2018-12-12] MEDS ORDERED: CLONAZEPAM 2 MG PO SCH (09:00)
[2018-12-12 14:43] VITALS: BP 111/71
[2018-12-12 20:04] VITALS: BP 105/71
[2018-12-12] MEDS: PRAZOSIN 5 MG CAPSULE PO SCH (20:22)
[2018-12-13 01:56] VITALS: BP 103/67
[2018-12-13] MEDS: HYDROmorphone PCA 30 MG/30 ML IV PRN (01:56)
[2018-12-13] MEDS: NS + 20MEQ KCL 1,000 ML IV SCH ×2 (02:56→13:45)
[2018-12-13 05:33] LABS: BASOPHILS # (AUTO) 0.03 x10^3/uL (0-0.1); BASOPHILS % (AUTO) 1 % (0-1); EOSINOPHILS # (AUTO) 0.26 x10^3/uL (0-0.4); EOSINOPHILS % (AUTO) 4 % (1-7); LYMPHOCYTES % (AUTO) 22 % (22-44); MD NO; MEAN CORPUSCULAR HEMOGLOBIN 32.2 pg (27.0-34.8); MEAN CORPUSCULAR HGB CONC 32.7 g/dL (32.4-35.8); MEAN CORPUSCULAR VOLUME 98.4 fL (80-100); MEAN PLATELET VOLUME 7.9 fL (7.4-10.4); MONOCYTES # (AUTO) 0.54 x10^3/uL (0.2-0.8); MONOCYTES % (AUTO) 9 % (2-9); NEUTROPHILS # (AUTO) 3.75 x10^3/uL (1.8-6.8); NEUTROPHILS % (AUTO) 64 % (42-75); PLATELET COUNT 247 x10^3/uL (130-400); RED BLOOD COUNT 3.45 x10^6/uL (3.82-5.3); RED CELL DISTRIBUTION WIDTH 15.3 % (9.6-15.2)
[2018-12-13 05:50] LABS: CHLORIDE 115 mmol/L (98-107)
[2018-12-13 06:02] LABS: ALANINE AMINOTRANSFERASE 80 U/L (12-78); ALBUMIN 2.5 g/dL (3.4-5.0); ALKALINE PHOSPHATASE 155 U/L (45-117); ANION GAP 3 mmol/L (5-15); BILIRUBIN,TOTAL 0.5 mg/dL (0.2-1.0); CALCIUM 7.8 mg/dL (8.5-10.1); CREATININE 0.43 mg/dL (0.55-1.02); PREALBUMIN 13.9 mg/dL (20.0-40.0); TOTAL PROTEIN 5.4 g/dL (6.4-8.2)
[2018-12-13] MEDS ORDERED: hydrOXyzine 50MG TABLET ONE ×2 (07:39→13:43)
[2018-12-13] MEDS: DOCUSATE 50 MG/5 ML, 10ML UDC NG SCH (07:42)
[2018-12-13] MEDS: DOCUSATE 100 MG CAPSULE PO SCH (07:43)
[2018-12-13] MEDS: ENOXAPARIN 30 MG/0.3 ML SQ SCH ×2 (07:43→20:47)
[2018-12-13 07:48] VITALS: BP 103/73
[2018-12-13 13:10] VITALS: BP 122/82
[2018-12-13] MEDS: SODIUM CHLORIDE 0.9% 1,000 ML IV SCH (16:00)
[2018-12-13 19:09] VITALS: BP 117/72
[2018-12-13] MEDS: PRAZOSIN 5 MG CAPSULE PO SCH (20:47)
[2018-12-14 00:38] VITALS: BP 114/68
[2018-12-14] MEDS: SODIUM CHLORIDE 0.9% 1,000 ML IV SCH ×3 (01:56→22:02)
[2018-12-14] MEDS: HYDROmorphone PCA 30 MG/30 ML IV PRN (01:56)
[2018-12-14 05:38] LABS: ALBUMIN 3.2 g/dL (3.4-5.0); CHLORIDE 110 mmol/L (98-107)
[2018-12-14 05:52] LABS: ALANINE AMINOTRANSFERASE 222 U/L (12-78); ALKALINE PHOSPHATASE 212 U/L (45-117); ANION GAP 5 mmol/L (5-15); BILIRUBIN,TOTAL 0.3 mg/dL (0.2-1.0); CALCIUM 8.6 mg/dL (8.5-10.1); CREATININE 0.52 mg/dL (0.55-1.02); TOTAL PROTEIN 6.7 g/dL (6.4-8.2)
[2018-12-14] MEDS: DOCUSATE 100 MG CAPSULE PO SCH (09:00)
[2018-12-14] MEDS: DOCUSATE 50 MG/5 ML, 10ML UDC NG SCH (09:01)
[2018-12-14] MEDS: ENOXAPARIN 30 MG/0.3 ML SQ SCH ×2 (09:03→20:20)
[2018-12-14 09:17] VITALS: BP 97/62
[2018-12-14 12:56] VITALS: BP 100/67
[2018-12-14] MEDS ORDERED: BENZOCAINE 20% SPRAY 0.5ML ONE (15:28)
[2018-12-14 19:32] VITALS: BP 99/66
[2018-12-14] MEDS: PRAZOSIN 5 MG CAPSULE PO SCH (20:20)
[2018-12-15 01:17] VITALS: BP 107/68
[2018-12-15 08:02] LABS: ALANINE AMINOTRANSFERASE 169 U/L (12-78); ALBUMIN 3.1 g/dL (3.4-5.0); ANION GAP 5 mmol/L (5-15); CALCIUM 8.3 mg/dL (8.5-10.1); CHLORIDE 108 mmol/L (98-107); CREATININE 0.58 mg/dL (0.55-1.02)
[2018-12-15 08:05] VITALS: BP 108/73
[2018-12-15 08:05] LABS: ALKALINE PHOSPHATASE 195 U/L (45-117); BILIRUBIN,TOTAL 0.2 mg/dL (0.2-1.0); TOTAL PROTEIN 6.6 g/dL (6.4-8.2)
[2018-12-15] MEDS ORDERED: hydrOXyzine 50MG TABLET ONE ×2 (08:10→14:00)
[2018-12-15] MEDS: ENOXAPARIN 30 MG/0.3 ML SQ SCH ×2 (08:13→20:15)
[2018-12-15] MEDS: DOCUSATE 100 MG CAPSULE PO SCH (08:13)
[2018-12-15] MEDS: DOCUSATE 50 MG/5 ML, 10ML UDC NG SCH (08:13)
[2018-12-15] MEDS: HYDROmorphone PCA 30 MG/30 ML IV PRN (09:02)
[2018-12-15] MEDS: SODIUM CHLORIDE 0.9% 1,000 ML IV SCH ×2 (09:02→18:10)
[2018-12-15 14:56] VITALS: BP 105/67
[2018-12-15 19:59] VITALS: BP 113/80
[2018-12-15] MEDS: PRAZOSIN 5 MG CAPSULE PO SCH (20:11)
[2018-12-16 01:51] VITALS: BP 104/68
[2018-12-16] MEDS: SODIUM CHLORIDE 0.9% 1,000 ML IV SCH ×2 (03:27→15:46)
[2018-12-16 06:10] LABS: ALANINE AMINOTRANSFERASE 162 U/L (12-78); ALBUMIN 2.4 g/dL (3.4-5.0); ANION GAP 6 mmol/L (5-15); CALCIUM 7.8 mg/dL (8.5-10.1); CHLORIDE 111 mmol/L (98-107); CREATININE 0.54 mg/dL (0.55-1.02)
[2018-12-16 06:12] LABS: ALKALINE PHOSPHATASE 161 U/L (45-117); BILIRUBIN,TOTAL 0.3 mg/dL (0.2-1.0); TOTAL PROTEIN 5.7 g/dL (6.4-8.2)
[2018-12-16 07:36] VITALS: BP 113/82
[2018-12-16] MEDS ORDERED: hydrOXyzine 50MG TABLET ONE (07:37)
[2018-12-16] MEDS: DOCUSATE 50 MG/5 ML, 10ML UDC NG SCH (07:43)
[2018-12-16] MEDS: DOCUSATE 100 MG CAPSULE PO SCH (07:44)
[2018-12-16] MEDS: ENOXAPARIN 30 MG/0.3 ML SQ SCH ×2 (07:44→22:46)
[2018-12-16] MEDS ORDERED: PROPOFOL 10 MG/ML, 20ML ONE (10:38)
[2018-12-16] MEDS: HYDROmorphone PCA 30 MG/30 ML IV PRN (10:54)
[2018-12-16] MEDS ORDERED: FENTANYL PF 250 MCG/5ML ONE (13:30)
[2018-12-16] MEDS ORDERED: MIDAZOLAM 1 MG/ML, 2ML ONE (13:30)
[2018-12-16] MEDS ORDERED: DEXAMETHASONE 4 MG/ML, 1ML ONE ×2 (13:31→14:01)
[2018-12-16] MEDS ORDERED: SUCCINYLCHOLINE 20 MG/ML, 10ML ONE (13:45)
[2018-12-16] MEDS ORDERED: ROCURONIUM 10MG/ML,5ML ONE (13:45)
[2018-12-16] MEDS ORDERED: PROMETHAZINE 12.5 MG SUPP PR PRN (14:00)
[2018-12-16] MEDS ORDERED: EPHEDRINE 50 MG/ML, 1ML IVPush PRN (14:00)
[2018-12-16] MEDS ORDERED: FENTANYL PF 100 MCG/2ML IV PRN (14:00)
[2018-12-16] MEDS ORDERED: HYDROmorphone 2 MG/ML, 1ML IVPush PRN (14:00)
[2018-12-16] MEDS ORDERED: MIDAZOLAM 1 MG/ML, 2ML IV PRN (14:00)
[2018-12-16] MEDS ORDERED: LABETALOL 5MG/ML, 20ML IV PRN (14:00)
[2018-12-16] MEDS ORDERED: ALBUTEROL SULFATE 2.5 MG/3 ML NPPB PRN (14:00)
[2018-12-16] MEDS ORDERED: HALOPERIDOL 5 MG/ML IV PRN (14:00)
[2018-12-16] MEDS ORDERED: PROMETHAZINE 25 MG/ML, 1ML IV PRN (14:00)
[2018-12-16] MEDS ORDERED: MEPERIDINE/PF 25MG/0.5ML IVPush PRN (14:00)
[2018-12-16] MEDS ORDERED: OXYcodone 5 MG/5 ML ORAL.SOL UDC PO PRN (14:00)
[2018-12-16] MEDS ORDERED: hydrALAzine 20 MG/ML, 1ML IV PRN (14:00)
[2018-12-16] MEDS ORDERED: ONDANSETRON ODT 8 MG PO PRN (14:00)
[2018-12-16] MEDS ORDERED: ONDANSETRON 2MG/ML, 2ML IV PRN (14:00)
[2018-12-16] MEDS ORDERED: DIAZEPAM 5 MG/ML, 2ML IVPush PRN (14:00)
[2018-12-16] MEDS ORDERED: ONDANSETRON 2MG/ML, 2ML ONE ×2 (14:01)
[2018-12-16] MEDS ORDERED: PROMETHAZINE 25 MG/ML, 1ML ONE (14:24)
[2018-12-16] MEDS ORDERED: OMNIPAQUE 350 MG/ML, 50 ML BOTTLE ONE (14:28)
[2018-12-16 15:10] VITALS: BP 127/84
[2018-12-16 19:53] VITALS: BP 123/80
[2018-12-16] MEDS ORDERED: PRAZOSIN 1 MG CAPSULE ONE ×2 (22:33→22:34)
[2018-12-16] MEDS ORDERED: PRAZOSIN 2 MG CAPSULE ONE (22:33)
[2018-12-16] MEDS: PRAZOSIN 5 MG CAPSULE PO SCH (22:45)
[2018-12-17 00:26] VITALS: BP 125/91
[2018-12-17] MEDS ORDERED: DULOXETINE 30 MG CAPSULE.DR ONE (00:44)
[2018-12-17] MEDS: DULOXETINE 30 MG CAPSULE.DR PO SCH ×2 (00:47→21:04)
[2018-12-17] MEDS: SODIUM CHLORIDE 0.9% 1,000 ML IV SCH ×3 (00:59→23:11)
[2018-12-17] MEDS: PROMETHAZINE 25 MG/ML, 1ML IM PRN ×2 (01:00→06:18)
[2018-12-17 04:54] VITALS: BP 115/66
[2018-12-17 05:49] LABS: ALANINE AMINOTRANSFERASE 165 U/L (12-78); ALBUMIN 2.7 g/dL (3.4-5.0); ANION GAP 8 mmol/L (5-15); CALCIUM 8.3 mg/dL (8.5-10.1); CHLORIDE 109 mmol/L (98-107); CREATININE 0.59 mg/dL (0.55-1.02)
[2018-12-17 05:51] LABS: ALKALINE PHOSPHATASE 183 U/L (45-117); BILIRUBIN,TOTAL 0.3 mg/dL (0.2-1.0)
[2018-12-17 06:16] LABS: BASOPHILS # (AUTO) 0.02 x10^3/uL (0-0.1); BASOPHILS % (AUTO) 0 % (0-1); EOSINOPHILS # (AUTO) 0.11 x10^3/uL (0-0.4); EOSINOPHILS % (AUTO) 1 % (1-7); LYMPHOCYTES # (AUTO) 1.52 x10^3/uL (1-3.4); LYMPHOCYTES % (AUTO) 18 % (22-44); MD NO; MEAN CORPUSCULAR HEMOGLOBIN 31.5 pg (27.0-34.8); MEAN CORPUSCULAR HGB CONC 32.7 g/dL (32.4-35.8); MEAN CORPUSCULAR VOLUME 96.6 fL (80-100); MEAN PLATELET VOLUME 8.3 fL (7.4-10.4); MONOCYTES % (AUTO) 10 % (2-9); NEUTROPHILS # (AUTO) 5.84 x10^3/uL (1.8-6.8); NEUTROPHILS % (AUTO) 71 % (42-75); PLATELET COUNT 303 x10^3/uL (130-400); RED BLOOD COUNT 3.46 x10^6/uL (3.82-5.3); RED CELL DISTRIBUTION WIDTH 14.8 % (9.6-15.2)
[2018-12-17 06:35] VITALS: BP 107/68
[2018-12-17] MEDS: DOCUSATE 100 MG CAPSULE PO SCH (10:49)
[2018-12-17] MEDS: DOCUSATE 50 MG/5 ML, 10ML UDC NG SCH (10:50)
[2018-12-17] MEDS: ENOXAPARIN 30 MG/0.3 ML SQ SCH ×2 (10:50→21:05)
[2018-12-17] MEDS ORDERED: HYDROmorphone PCA 30 MG/30 ML IV PRN (11:30)
[2018-12-17 14:42] VITALS: BP 110/65
[2018-12-17] MEDS ORDERED: PRAZOSIN 1 MG CAPSULE ONE (20:53)
[2018-12-17] MEDS ORDERED: PRAZOSIN 2 MG CAPSULE ONE (20:59)
[2018-12-17 21:00] VITALS: BP 123/74
[2018-12-17] MEDS: PRAZOSIN 5 MG CAPSULE PO SCH (21:00)
[2018-12-17] MEDS ORDERED: hydrOXyzine 50MG TABLET ONE (22:46)
[2018-12-18 01:13] VITALS: BP 124/85
[2018-12-18 06:20] LABS: ALANINE AMINOTRANSFERASE 133 U/L (12-78); ALBUMIN 2.6 g/dL (3.4-5.0); ANION GAP 7 mmol/L (5-15); CHLORIDE 109 mmol/L (98-107); CREATININE 0.53 mg/dL (0.55-1.02)
[2018-12-18 06:22] LABS: ALKALINE PHOSPHATASE 166 U/L (45-117); BILIRUBIN,TOTAL 0.2 mg/dL (0.2-1.0); TOTAL PROTEIN 5.6 g/dL (6.4-8.2)
[2018-12-18 07:34] VITALS: BP 116/74
[2018-12-18] MEDS: DOCUSATE 100 MG CAPSULE PO SCH (09:00)
[2018-12-18] MEDS: DOCUSATE 50 MG/5 ML, 10ML UDC NG SCH (09:00)
[2018-12-18] MEDS: SODIUM CHLORIDE 0.9% 1,000 ML IV SCH ×2 (09:36→14:47)
[2018-12-18] MEDS: ENOXAPARIN 30 MG/0.3 ML SQ SCH ×2 (09:37→20:43)
[2018-12-18] MEDS ORDERED: HYDROmorphone PCA 30 MG/30 ML IV PRN (12:00)
[2018-12-18 12:44] VITALS: BP 123/75
[2018-12-18] MEDS ORDERED: hydrOXyzine 50MG TABLET ONE (20:27)
[2018-12-18] MEDS ORDERED: PRAZOSIN 1 MG CAPSULE ONE (20:31)
[2018-12-18] MEDS ORDERED: PRAZOSIN 2 MG CAPSULE ONE (20:31)
[2018-12-18] MEDS: PRAZOSIN 5 MG CAPSULE PO SCH (20:44)
[2018-12-18] MEDS: DULOXETINE 30 MG CAPSULE.DR PO SCH (20:45)
[2018-12-18 21:32] VITALS: BP 120/73
[2018-12-19 01:58] VITALS: BP 118/70
[2018-12-19 05:16] LABS: ANION GAP 6 mmol/L (5-15); CALCIUM 8.2 mg/dL (8.5-10.1); CHLORIDE 107 mmol/L (98-107)
[2018-12-19] MEDS ORDERED: MAGNESIUM SULFATE PMX 2GM/50ML 50 ML IV ONE (06:00)
[2018-12-19] MEDS ORDERED: POTASSIUM CHLORIDE 40 MEQ in SODIUM CHLORIDE 0.9% 500 ML IV ONE (06:00)
[2018-12-19] MEDS: ENOXAPARIN 30 MG/0.3 ML SQ SCH ×2 (08:14→20:34)
[2018-12-19] MEDS: DOCUSATE 100 MG CAPSULE PO SCH (08:15)
[2018-12-19] MEDS: DOCUSATE 50 MG/5 ML, 10ML UDC NG SCH (08:15)
[2018-12-19 09:50] VITALS: BP 124/70
[2018-12-19 15:10] VITALS: BP 102/65
[2018-12-19] MEDS: SODIUM CHLORIDE 0.9% 1,000 ML IV SCH (15:41)
[2018-12-19] MEDS: HYDROcodone/APAP 10/325 MG TABLET PO PRN ×2 (17:25→22:02)
[2018-12-19 19:05] VITALS: BP 100/63
[2018-12-19] MEDS ORDERED: PRAZOSIN 2 MG CAPSULE ONE (20:10)
[2018-12-19] MEDS ORDERED: PRAZOSIN 1 MG CAPSULE ONE (20:10)
[2018-12-19] MEDS: DULOXETINE 30 MG CAPSULE.DR PO SCH (20:34)
[2018-12-19] MEDS: PRAZOSIN 5 MG CAPSULE PO SCH (20:34)
[2018-12-19] MEDS: DICYCLOMINE 20 MG TABLET PO PRN ×2 (22:54)
[2018-12-19] MEDS: MORPHINE SULFATE 4 MG/ML, 1ML IVPush PRN (23:19)
[2018-12-20 01:15] VITALS: BP 96/56
[2018-12-20] MEDS: MORPHINE SULFATE 4 MG/ML, 1ML IVPush PRN ×3 (01:43→12:17)
[2018-12-20] MEDS: HYDROcodone/APAP 10/325 MG TABLET PO PRN ×2 (03:01→09:30)
[2018-12-20 05:56] LABS: ANION GAP 6 mmol/L (5-15); CALCIUM 8.3 mg/dL (8.5-10.1); CHLORIDE 108 mmol/L (98-107)
[2018-12-20 05:58] LABS: CREATININE 0.57 mg/dL (0.55-1.02)
[2018-12-20 08:19] VITALS: BP 99/63
[2018-12-20] MEDS: DOCUSATE 50 MG/5 ML, 10ML UDC NG SCH (09:00)
[2018-12-20] MEDS: DOCUSATE 100 MG CAPSULE PO SCH (09:30)
[2018-12-20] MEDS: DICYCLOMINE 20 MG TABLET PO PRN (09:30)
[2018-12-20] MEDS: ENOXAPARIN 30 MG/0.3 ML SQ SCH (09:31)
[2018-12-20] MEDS ORDERED: GLYC1SUP PR (10:20)
[2018-12-20] MEDS ORDERED: DULO60CA7 PO (10:20)
== END 2018-12-20 13:15 | disposition home or self-care (01) | DRG 444 ==
LOC: ED 16:15 → EDIP 16:25 → 4NOR 17:10 → DCLOUNGE 12-20 13:00
PROVIDERS: ADMIT Family Medicine; ATTEND Family Medicine
PROC: 0F7C8ZZ Dilation of Ampulla of Vater, Via Natural or Artificial Opening Endoscopic (ICD-10-PCS; principal; 2018-12-16 13:00)
DX: K83.09 Other cholangitis (principal); E43 Unspecified severe protein-calorie malnutrition; K83.1 Obstruction of bile duct; K55.1 Chronic vascular disorders of intestine; Z68.1 Body mass index [BMI] 19.9 or less, adult; F11.20 Opioid dependence, uncomplicated; E80.21 Acute intermittent (hepatic) porphyria; K31.5 Obstruction of duodenum; N13.30 Unspecified hydronephrosis; K83.8 Other specified diseases of biliary tract; K82.8 Other specified diseases of gallbladder; E78.5 Hyperlipidemia, unspecified; E86.0 Dehydration; F17.210 Nicotine dependence, cigarettes, uncomplicated; F32.9 Major depressive disorder, single episode, unspecified; F41.0 Panic disorder [episodic paroxysmal anxiety]; F41.1 Generalized anxiety disorder; F43.10 Post-traumatic stress disorder, unspecified; G89.29 Other chronic pain; I45.81 Long QT syndrome; K59.00 Constipation, unspecified; Z62.810 Personal history of physical and sexual abuse in childhood; Z79.899 Other long term (current) drug therapy; Z86.73 Personal history of transient ischemic attack (TIA), and cerebral infarction without residual deficits; Z90.49 Acquired absence of other specified parts of digestive tract
CPT/HCPCS: 36415; 74018; 74021; 74181; 74245; 74328; 74340; 78227; 80048; 80053; 80307; 81003; 83605; 83690; 83735; 84100; 84110; 84134; 84703; 85025; 86705; 86706; 86708; 86709; 86803; 87340; 93005; 96361; 96374; 96375; 96376; G0378; J1100; J1170; J1650; J2250; J2405; J2550; J2704; J3010; J3480; Q9967; A9537; C1769; C9898; J0330; J2270; J2805; J3475; J7030; J7040; Q0177

== ENCOUNTER 2019-01-05 20:36 | Inpatient (IN) | payer BC, MEDICARE ==
[~2019-01-05] VITALS: Ht 175.3 cm; Wt 59.5 kg
[~2019-01-05 20:36] MED LIST changes: +GLYC1SUP PR; -HYDR-3307 PO; +HYDR-36 PO; +HYDR-826 PO; -HYDR25TA11 PO
[2019-01-05] MEDS ORDERED: HYDROmorphone 1 MG/ML, 1ML VIAL ONE ×2 (20:40→21:13)
[2019-01-05] MEDS ORDERED: ONDANSETRON 2MG/ML, 2ML ONE (20:41)
--- NOTE | 2019-01-05 20:59 | NUR ---
PT BIB EMS FROM HOME FOR SMA FLARE UP X 3 DAYS. PT REPORTS THAT SHE HAS BEEN ATTEMPTING TO USE KETAMINE AND HYDROCODONE AT HOME TO HELP WITH THE PAIN. PT REPORTS RIGHT SIDED ABD PAIN WITH RIGHT FLANK PAIN. PT BROUGHT A CUP FULL OF BILE FROM HOME BECAUSE THAT WAS WHAT HER NJ TUBE EXCRETED OUT THIS MORNING AND SHE WAS CONCERNED. PT DELAYED IN COMING IN BECAUSE SHE WANTED TO WAIT IT OUT BUT NO LONGER COULD. PT HAS NJ IN RIGHT NARE PLACED 12/16/18. PT CONNECTED TO MONITORS AND IMMEDIATELY MEDICATED FOR PAIN SHE IS YELLING AND HUMMING VERY LOUD SECODNARY TO HER DISCOMFORT. VSS AT THIS TIME.
[2019-01-05] MEDS ORDERED: ONDANSETRON 2MG/ML, 2ML IVPush ONE (21:00)
[2019-01-05] MEDS ORDERED: HYDROmorphone 2 MG/ML, 1ML IVPush PRN (21:00)
[2019-01-05] MEDS ORDERED: SODIUM CHLORIDE 0.9% 1,000ML IVBOLUS ONE (21:00)
--- NOTE | 2019-01-05 21:08 | NUR ---
PT STILL MOANING, OFFERED SECOND DILUDID DOSE WOULD LIKE TO WAIT.
[2019-01-05 21:09] LABS: BASOPHILS # (AUTO) 0.04 x10^3/uL (0-0.1); BASOPHILS % (AUTO) 0 % (0-1); EOSINOPHILS # (AUTO) 0.28 x10^3/uL (0-0.4); EOSINOPHILS % (AUTO) 2 % (1-7); LYMPHOCYTES # (AUTO) 1.43 x10^3/uL (1-3.4); LYMPHOCYTES % (AUTO) 12 % (22-44); MD NO; MEAN CORPUSCULAR HEMOGLOBIN 31.8 pg (27.0-34.8); MEAN CORPUSCULAR HGB CONC 32.7 g/dL (32.4-35.8); MEAN CORPUSCULAR VOLUME 97.1 fL (80-100); MEAN PLATELET VOLUME 8.3 fL (7.4-10.4); MONOCYTES # (AUTO) 0.68 x10^3/uL (0.2-0.8); MONOCYTES % (AUTO) 6 % (2-9); NEUTROPHILS # (AUTO) 9.63 x10^3/uL (1.8-6.8); NEUTROPHILS % (AUTO) 80 % (42-75); PLATELET COUNT 315 x10^3/uL (130-400); RED BLOOD COUNT 4.37 x10^6/uL (3.82-5.3); RED CELL DISTRIBUTION WIDTH 15.1 % (9.6-15.2)
[2019-01-05 21:20] LABS: ALANINE AMINOTRANSFERASE 22 U/L (12-78); ALBUMIN 3.3 g/dL (3.4-5.0); ANION GAP 10 mmol/L (5-15); CALCIUM 8.1 mg/dL (8.5-10.1); CHLORIDE 112 mmol/L (98-107); CREATININE 0.68 mg/dL (0.55-1.02)
[2019-01-05] MEDS ORDERED: KETAMINE 10 MG/ML, 20ML ONE (21:24)
[2019-01-05 21:25] LABS: ALKALINE PHOSPHATASE 119 U/L (45-117); BILIRUBIN,TOTAL 0.3 mg/dL (0.2-1.0); TOTAL PROTEIN 6.9 g/dL (6.4-8.2)
[2019-01-05] MEDS ORDERED: KETAMINE 10 MG/ML, 20ML IV ONE ×2 (21:30→23:30)
[2019-01-05] MEDS ORDERED: HYDROmorphone 1 MG/ML, 1ML VIAL IVPush PRN (21:30)
--- NOTE | 2019-01-05 21:42 | NUR ---
PT WALKED TO RESTROOM AND BACK. PT GAVE UA SAMPLE. PT MEDICATED PER EMAR.
--- NOTE | 2019-01-05 21:43 | NUR ---
PT TO CT
--- NOTE | 2019-01-05 22:02 | NUR ---
PT ASLEEP, NO DISTRESS NOTED. VSS. PT LEFT TO REST. WILL CONTINUE TO MONITOR PT.
--- NOTE | 2019-01-05 22:48 | NUR ---
PT AWAKE REPORTING THAT SHE IS HAVING SEVERE PAIN AGAIN. UNABLE TO TOLERATE. MD SPENCER INFORMED. PT WILL BE ALLOWED TO METABOLIZE MORE OF THE KETAMINE TO SEE IF IT IMPROVES PAIN PRIOR TO RECIEVING MORE
[2019-01-05 22:49] LABS: MICROSCOPIC NOT IND
[2019-01-05] MEDS ORDERED: OMNIPAQUE 350 MG/ML, 100ML BOTTLE ONE (22:54)
[2019-01-05 22:58] LABS: CULTURE INDICATED? NO
--- NOTE | 2019-01-05 23:45 | NUR ---
REPORT TO MELVIN HICKS. GHADA [place]TANA AT BEDSIDE FOR ADMISSION.
[2019-01-06 00:13] VITALS: BP 146/87
[2019-01-06] MEDS ORDERED: ACETAMINOPHEN 325 MG TABLET PO PRN (00:30)
[2019-01-06] MEDS ORDERED: HYDROmorphone 2 MG/ML, 1ML IVPush PRN (00:30)
[2019-01-06] MEDS ORDERED: METOCLOPRAMIDE 5 MG/ML, 2ML IVPush PRN (00:30)
[2019-01-06] MEDS ORDERED: DOCUSATE 100 MG CAPSULE PO PRN (00:30)
[2019-01-06] MEDS ORDERED: POLYETHYLENE GLYCOL 17 GM PACKET PO PRN (00:30)
[2019-01-06] MEDS ORDERED: LABETALOL 5MG/ML, 20ML IVPush PRN (00:30)
[2019-01-06] MEDS: HYDROmorphone 2 MG/ML, 1ML IVPush PRN ×2 (00:57→02:40)
[2019-01-06] MEDS: NICOTINE 14MG/24 HR PATCH.TD24 TD SCH (00:58)
[2019-01-06] MEDS: HEPARIN 5,000 UNITS/ML, 1ML SQ SCH ×4 (00:58→18:02)
[2019-01-06] MEDS ORDERED: GABAPENTIN 300 MG CAPSULE PO PRN (01:00)
[2019-01-06] MEDS ORDERED: ZOLPIDEM 5MG TABLET PO PRN (01:00)
[2019-01-06 01:43] LABS: AMPHETAMINE SCREEN, URINE Negative (Negative); BARBITURATE SCREEN, URINE Negative (Negative); BENZODIAZEPINE SCREEN, URINE Positive (Negative); CANNABINOID SCREEN, URINE Negative (Negative); COCAINE SCREEN, URINE Negative (Negative); METHADONE SCREEN, URINE Negative (Negative); OPIATE SCREEN, URINE Positive (Negative)
[2019-01-06 02:29] VITALS: BP 146/90
[2019-01-06] MEDS: LACTATED RINGERS 1,000 ML IV SCH ×2 (02:34→13:46)
[2019-01-06] MEDS: OXYcodone IR 5MG TABLET PO PRN ×2 (03:39→14:21)
[2019-01-06] MEDS: HYDROmorphone 2 MG/ML, 1ML IV PRN ×5 (04:53→16:01)
[2019-01-06 07:35] VITALS: BP 132/96
[2019-01-06] MEDS ORDERED: DULOXETINE 30 MG CAPSULE.DR PO SCH (09:00)
[2019-01-06] MEDS: BACLOFEN 10 MG TABLET PO SCH (09:17)
[2019-01-06] MEDS: KETAMINE PO PRN ×2 (09:19→14:21)
[2019-01-06 13:44] VITALS: BP 127/69
[2019-01-06] MEDS ORDERED: HYDROmorphone PCA 30 MG/30 ML IV PRN (17:00)
[2019-01-06] MEDS ORDERED: HYDROmorphone 1 MG/ML, 1ML VIAL ONE (18:40)
[2019-01-06] MEDS ORDERED: HYDROmorphone 1 MG/ML, 1ML INJ IVPush ONE (19:00)
[2019-01-06] MEDS ORDERED: PRAZOSIN 5 MG CAPSULE PO SCH (21:00)
[2019-01-06 22:33] VITALS: BP 121/77
[2019-01-07] MEDS: NICOTINE 14MG/24 HR PATCH.TD24 TD SCH (00:30)
[2019-01-07] MEDS: LACTATED RINGERS 1,000 ML IV SCH ×2 (00:45→10:00)
[2019-01-07] MEDS: HEPARIN 5,000 UNITS/ML, 1ML SQ SCH ×2 (00:47→09:00)
[2019-01-07 02:30] VITALS: BP 100/64
[2019-01-07 05:21] LABS: BASOPHILS % (AUTO) 0 % (0-1); EOSINOPHILS # (AUTO) 0.07 x10^3/uL (0-0.4); EOSINOPHILS % (AUTO) 1 % (1-7); LYMPHOCYTES # (AUTO) 0.94 x10^3/uL (1-3.4); LYMPHOCYTES % (AUTO) 8 % (22-44); MD NO; MEAN CORPUSCULAR HEMOGLOBIN 31.2 pg (27.0-34.8); MEAN CORPUSCULAR HGB CONC 32.3 g/dL (32.4-35.8); MEAN CORPUSCULAR VOLUME 96.6 fL (80-100); MONOCYTES # (AUTO) 0.77 x10^3/uL (0.2-0.8); MONOCYTES % (AUTO) 7 % (2-9); NEUTROPHILS % (AUTO) 85 % (42-75); PLATELET COUNT 213 x10^3/uL (130-400); RED BLOOD COUNT 4.15 x10^6/uL (3.82-5.3); RED CELL DISTRIBUTION WIDTH 14.9 % (9.6-15.2)
[2019-01-07 05:23] LABS: ALBUMIN 2.9 g/dL (3.4-5.0); ANION GAP 6 mmol/L (5-15); CALCIUM 8.3 mg/dL (8.5-10.1); CHLORIDE 105 mmol/L (98-107)
[2019-01-07 05:28] LABS: ALANINE AMINOTRANSFERASE 19 U/L (12-78); ALKALINE PHOSPHATASE 126 U/L (45-117); BILIRUBIN,TOTAL 0.5 mg/dL (0.2-1.0); CREATININE 0.69 mg/dL (0.55-1.02); TOTAL PROTEIN 6.2 g/dL (6.4-8.2)
[2019-01-07 06:32] VITALS: BP 99/62
[2019-01-07] MEDS: BACLOFEN 10 MG TABLET PO SCH (09:34)
[2019-01-07 10:21] VITALS: BP 99/63
[2019-01-07 12:09] LABS: MICROSCOPIC NOT IND
[2019-01-07 12:17] VITALS: BP 102/69
[2019-01-07 12:18] LABS: CULTURE INDICATED? NO
== END 2019-01-07 15:46 | disposition home or self-care (01) | DRG 394 ==
LOC: ED 20:58 → EDIP 23:15 → 4NOR 01-06 00:04 → 4EST 01-06 01:14
PROVIDERS: ADMIT Family Medicine; ATTEND Family Medicine
DX: K55.1 Chronic vascular disorders of intestine (principal); E87.2 Acidosis; F19.20 Other psychoactive substance dependence, uncomplicated; R64 Cachexia; E46 Unspecified protein-calorie malnutrition; Z68.1 Body mass index [BMI] 19.9 or less, adult; N13.30 Unspecified hydronephrosis; E83.51 Hypocalcemia; E86.0 Dehydration; F17.210 Nicotine dependence, cigarettes, uncomplicated; F32.9 Major depressive disorder, single episode, unspecified; F43.10 Post-traumatic stress disorder, unspecified; G47.00 Insomnia, unspecified; G89.29 Other chronic pain; K76.0 Fatty (change of) liver, not elsewhere classified; Z82.62 Family history of osteoporosis
CPT/HCPCS: 36415; 74177; 80053; 80307; 81003; 82977; 83690; 83735; 84100; 84703; 85025; 93005; 96374; 96375; 96376; G0378; J1170; J1644; J2405; Q9967; J2765; J7030; J7120; Q0177

== ENCOUNTER 2019-04-30 17:38 | Emergency (ER) | payer BC, MEDICARE ==
[~2019-04-30] VITALS: Ht 170.2 cm; Wt 54.0 kg
--- NOTE | 2019-04-30 17:59 | NUR ---
BIB [facility] FROM HOME WITH C/O WORSENING ABD PAIN OVER LAST WEEK. N/V STARTING YESTEDAY. DISPLACED G-TUBE 3 TO 4 HOURS AGO. EXTENSIVE GI HISTORY. PATIENT HAD APPOINTMENT WITH [facility] TODAY BUT DID NOT MAKE IT DUE TO INCREASED PAIN. PT ON EXTENSIVE PAIN MANGMENT. MILD DISTRESS WITH MODERATE DISCOMFORT NOTED. POC DISCUSSED. AWAITING EVAL AND ORDERS. WILL CONTINUE TO MONITOR.
[2019-04-30] MEDS ORDERED: HALOPERIDOL 5 MG/ML ONE (18:46)
--- NOTE | 2019-04-30 18:50 | NUR ---
PATIENT MEDICATED PER AUG. RIGHTS VERIFIED PRIOR.
[2019-04-30] MEDS ORDERED: HALOPERIDOL 5 MG/ML IV ONE (19:00)
--- NOTE | 2019-04-30 19:19 | NUR ---
PATIENT STATES MINIMAL IMPROVMENT OF PAIN AT THIS TIME.
--- NOTE | 2019-04-30 19:48 | NUR ---
POC UPDATED WITH PATIENT.
--- NOTE | 2019-04-30 19:49 | NUR ---
[facility] CALLED TO CONFIRM ORDER
[2019-04-30] MEDS ORDERED: KETAMINE 10 MG/ML, 20ML IV ONE ×2 (20:00→22:00)
[2019-04-30] MEDS ORDERED: KETAMINE 10 MG/ML, 20ML ONE ×2 (20:16→21:44)
--- NOTE | 2019-04-30 20:40 | NUR ---
Pt amb w/ steady gait to rr.
--- NOTE | 2019-04-30 21:36 | NUR ---
BAKARI RN: SPOKE WITH RAFAT FROM OR TO REQUEST G-TUBE. OR WILL SEND DOWN FOR US.
--- NOTE | 2019-04-30 21:41 | NUR ---
TP RN: ER SUP GOING UP TO OR TO GET G-TUBE
[2019-04-30 21:52] VITALS: BP 122/81
[2019-04-30] MEDS ORDERED: SODIUM CHLORIDE 0.9% 1,000ML IVBOLUS ONE (22:00)
[2019-04-30 22:02] LABS: BASOPHILS # (AUTO) 0.05 x10^3/uL (0-0.1); BASOPHILS % (AUTO) 0 % (0-1); EOSINOPHILS % (AUTO) 0 % (1-7); LYMPHOCYTES # (AUTO) 0.73 x10^3/uL (1-3.4); LYMPHOCYTES % (AUTO) 5 % (22-44); MD NO; MEAN CORPUSCULAR HEMOGLOBIN 30.8 pg (27.0-34.8); MEAN CORPUSCULAR HGB CONC 33.2 g/dL (32.4-35.8); MEAN PLATELET VOLUME 8.4 fL (7.4-10.4); MONOCYTES # (AUTO) 0.87 x10^3/uL (0.2-0.8); MONOCYTES % (AUTO) 6 % (2-9); NEUTROPHILS # (AUTO) 12.11 x10^3/uL (1.8-6.8); NEUTROPHILS % (AUTO) 88 % (42-75); PLATELET COUNT 338 x10^3/uL (130-400); RED BLOOD COUNT 4.32 x10^6/uL (3.82-5.3); RED CELL DISTRIBUTION WIDTH 16.5 % (9.6-15.2)
[2019-04-30 22:11] LABS: ALBUMIN 3.3 g/dL (3.4-5.0); ANION GAP 6 mmol/L (5-15); CALCIUM 8.6 mg/dL (8.5-10.1); CHLORIDE 109 mmol/L (98-107)
[2019-04-30 22:15] LABS: ALANINE AMINOTRANSFERASE 22 U/L (12-78); ALKALINE PHOSPHATASE 138 U/L (45-117); BILIRUBIN,TOTAL 0.3 mg/dL (0.2-1.0); TOTAL PROTEIN 7.3 g/dL (6.4-8.2)
--- NOTE | 2019-04-30 22:16 | NUR ---
DR DANIELS SPOKE WITH DR BLANCAS
== END 2019-04-30 23:17 | disposition home or self-care (01) ==
LOC: ED 20:02
DX: R10.84 Generalized abdominal pain (principal); R11.2 Nausea with vomiting, unspecified; F17.200 Nicotine dependence, unspecified, uncomplicated; G89.29 Other chronic pain; E07.9 Disorder of thyroid, unspecified; Z90.49 Acquired absence of other specified parts of digestive tract
CPT/HCPCS: 36415; 80053; 85025; 96361; 96374; 96375; 96376; 99283; J1630; J7030

== ENCOUNTER 2019-05-02 11:24 | Emergency (ER) | payer BC, MEDICARE ==
[~2019-05-02] VITALS: Ht 175.3 cm; Wt 51.0 kg
[2019-05-02] MEDS: SODIUM CHLORIDE FLUSH 10ML SYR IVF ONE (12:00)
[2019-05-02] MEDS ORDERED: HYDROmorphone 1 MG/ML, 1ML VIAL ONE (12:13)
[2019-05-02] MEDS ORDERED: ONDANSETRON 2MG/ML, 2ML ONE (12:13)
[2019-05-02] MEDS ORDERED: FAMOTIDINE 20 MG/2 ML ONE (12:14)
[2019-05-02] MEDS: HYDROmorphone 2 MG/ML, 1ML IVPush PRN (12:15)
[2019-05-02] MEDS: FAMOTIDINE 20 MG/2 ML IV ONE (12:15)
[2019-05-02] MEDS: ONDANSETRON 2MG/ML, 2ML IVPush ONE (12:16)
[2019-05-02 12:28] LABS: BASOPHILS # (AUTO) 0.09 x10^3/uL (0-0.1); BASOPHILS % (AUTO) 1 % (0-1); EOSINOPHILS # (AUTO) 0.02 x10^3/uL (0-0.4); EOSINOPHILS % (AUTO) 0 % (1-7); LYMPHOCYTES # (AUTO) 1.03 x10^3/uL (1-3.4); LYMPHOCYTES % (AUTO) 7 % (22-44); MD NO; MEAN CORPUSCULAR HEMOGLOBIN 30.9 pg (27.0-34.8); MEAN CORPUSCULAR HGB CONC 32.8 g/dL (32.4-35.8); MEAN CORPUSCULAR VOLUME 94.3 fL (80-100); MEAN PLATELET VOLUME 8.6 fL (7.4-10.4); MONOCYTES # (AUTO) 1.29 x10^3/uL (0.2-0.8); MONOCYTES % (AUTO) 9 % (2-9); NEUTROPHILS # (AUTO) 12.78 x10^3/uL (1.8-6.8); NEUTROPHILS % (AUTO) 84 % (42-75); PLATELET COUNT 344 x10^3/uL (130-400); RED BLOOD COUNT 4.36 x10^6/uL (3.82-5.3); RED CELL DISTRIBUTION WIDTH 16.1 % (9.6-15.2)
[2019-05-02 12:30] LABS: CHLORIDE 107 mmol/L (98-107)
[2019-05-02 12:47] LABS: ALANINE AMINOTRANSFERASE 46 U/L (12-78); ALBUMIN 3.4 g/dL (3.4-5.0); ALKALINE PHOSPHATASE 149 U/L (45-117); ANION GAP 4 mmol/L (5-15); BILIRUBIN,TOTAL 0.4 mg/dL (0.2-1.0); CALCIUM 8.6 mg/dL (8.5-10.1); TOTAL PROTEIN 7.6 g/dL (6.4-8.2)
[2019-05-02] MEDS ORDERED: MIDAZOLAM 1 MG/ML, 5ML ONE (13:12)
[2019-05-02] MEDS ORDERED: NALOXONE 1 MG/ML, 2ML ONE (13:12)
[2019-05-02] MEDS ORDERED: FENTANYL PF 100 MCG/2ML ONE ×2 (13:12)
[2019-05-02] MEDS ORDERED: FLUMAZENIL 0.1 MG/1 ML, 5ML ONE (13:12)
[2019-05-02] MEDS ORDERED: LIDOCAINE 1%, 20ML ONE (13:14)
[2019-05-02] MEDS ORDERED: LIDOCAINE GEL 2%, 5ML ONE (13:26)
[2019-05-02 14:51] VITALS: BP 149/102
== END 2019-05-02 14:53 | disposition home or self-care (01) ==
LOC: ED 12:18
DX: Z43.4 Encounter for attention to other artificial openings of digestive tract (principal); R10.84 Generalized abdominal pain; G89.29 Other chronic pain; Z90.49 Acquired absence of other specified parts of digestive tract
CPT/HCPCS: 36415; 49441; 49451; 74021; 75984; 80053; 83690; 85025; 96374; 96375; 99156; 99157; J1170; J2250; J2405; J3010; J2310; J3490

== ENCOUNTER 2019-05-09 20:05 | Inpatient (IN) | payer BC, MEDICARE ==
[2019-05-09] VITALS: BP 128/81
[~2019-05-09] VITALS: Ht 175.3 cm; Wt 57.9 kg
--- NOTE | 2019-05-09 20:20 | NUR ---
PT PLACED ON CONTACT PRECAUTIONS UNTIL C DIF RESULTS
--- NOTE | 2019-05-09 20:28 | NUR ---
BEDSIDE CAMMODE PROVIDED
[2019-05-09] MEDS ORDERED: SODIUM CHLORIDE FLUSH 10ML SYR IVF ONE (20:30)
[2019-05-09 20:35] LABS: MEAN CORPUSCULAR HGB CONC 32.6 g/dL (32.4-35.8); MEAN CORPUSCULAR VOLUME 94.9 fL (80-100); MEAN PLATELET VOLUME 8.5 fL (7.4-10.4); PLATELET COUNT 479 x10^3/uL (130-400); RED BLOOD COUNT 4.62 x10^6/uL (3.82-5.3); RED CELL DISTRIBUTION WIDTH 16.7 % (9.6-15.2)
[2019-05-09 20:44] LABS: ALANINE AMINOTRANSFERASE 162 U/L (12-78); ALBUMIN 3.3 g/dL (3.4-5.0); ANION GAP 7 mmol/L (5-15); CALCIUM 9.2 mg/dL (8.5-10.1); CHLORIDE 107 mmol/L (98-107); CREATININE 0.83 mg/dL (0.55-1.02)
[2019-05-09 20:47] LABS: ALKALINE PHOSPHATASE 295 U/L (45-117); BILIRUBIN,TOTAL 0.2 mg/dL (0.2-1.0); TOTAL PROTEIN 8.8 g/dL (6.4-8.2)
[2019-05-09] MEDS ORDERED: OMNIPAQUE 350 MG/ML, 100ML BOTTLE ONE (20:47)
--- NOTE | 2019-05-09 20:52 | NUR ---
STOOL WALKED TO LAB
[2019-05-09 20:53] LABS: MD YES
[2019-05-09] MEDS ORDERED: SODIUM CHLORIDE 0.9% 1,000 ML IV ONE (20:53)
[2019-05-09] MEDS ORDERED: HYDROmorphone 2 MG/ML, 1ML IVPush PRN (21:00)
[2019-05-09] MEDS ORDERED: ONDANSETRON 2MG/ML, 2ML IVPush ONE (21:00)
[2019-05-09] MEDS ORDERED: SODIUM CHLORIDE 0.9% 1,000ML IVBOLUS ONE (21:00)
[2019-05-09] MEDS ORDERED: ONDANSETRON 2MG/ML, 2ML ONE (21:07)
[2019-05-09] MEDS ORDERED: HYDROmorphone 1 MG/ML, 1ML VIAL ONE (21:07)
[2019-05-09 21:30] LABS: BAND#(MANUAL) 0.43 x10^3/uL; BANDS%(MANUAL) 2 % (0-7); BASOS#(MANUAL) 0.22 x10^3/uL (0-0.1); BASOS% (MANUAL) 1 % (0-1); LYMPH#(MANUAL) 1.94 x10^3/uL (1-3.4); LYMPHS% (MANUAL) 9 % (22-44); MONOS#(MANUAL) 0.86 x10^3/uL (0.3-2.7); MONOS% (MANUAL) 4 % (2-9); SEG#(MANUAL) 18.06 x10^3/uL (1.8-6.8); SEGS% (MANUAL) 84 % (42-75)
[2019-05-09 21:31] LABS: <PLATELET ESTIMATE> INCREASED; <PLT MORPHOLOGY> NORMAL PLT MORPH; ANISOCYTOSIS 1+; POLYCHROMASIA 1+
[2019-05-09 21:31] LABS: CLOSTRIDIUM DIFFICILE ANTIGEN NEGATIVE; CLOSTRIDIUM DIFFICILE TOXIN NEGATIVE (Negative)
--- NOTE | 2019-05-09 22:01 | NUR ---
PT STATES BRIEF RELIEF OF PAIN AND NAUSEA FROM MEDICATIONS BUT THAT SYMPTOMS ARE RETURNING.
--- NOTE | 2019-05-09 22:13 | NUR ---
PT STRAIGHT CATH'ED FOR URINE. PT TOLERATED WELL.
[2019-05-09 22:41] LABS: MICROSCOPIC INDICATED
[2019-05-09] MEDS ORDERED: SODIUM CHLORIDE FLUSH 10ML SYR IVF PRN (23:00)
--- NOTE | 2019-05-09 23:00 | NUR ---
REPORT TO KURT JEAN BAPTISTE
[2019-05-09] MEDS ORDERED: PROMETHAZINE 25 MG/ML, 1ML ONE (23:15)
[2019-05-09 23:22] LABS: CULTURE INDICATED? NO
[2019-05-09] MEDS ORDERED: OXYC80TA25 PO (23:24)
[2019-05-09] MEDS ORDERED: HYDROMORPHONE (23:24)
--- NOTE | 2019-05-09 23:29 | NUR ---
SECTION A ON SEPSIS FLOW SHEET NOT MET.
[2019-05-09] MEDS ORDERED: PROMETHAZINE 25 MG/ML, 1ML IM ONE (23:30)
[2019-05-09 23:32] VITALS: BP 128/81
[2019-05-10] VITALS: BP 128/81
[2019-05-10] MEDS ORDERED: HYOSCYAMINE 0.125 MG TABLET PO PRN
[2019-05-10] MEDS ORDERED: SCOPOLAMINE PATCH, 1.5MG PATCH.TD72 TD ONE
--- NOTE | 2019-05-10 00:18 | NUR ---
HOME MEDS THAT CAME IN WITH PATIENT WALKED TO PHARMACY FOR SAFE KEEPING AND ACCOUNTED FOR WITH PAPERWORK THAT WAS HANDED OFF TO KURT JEAN BAPTISTE ON 3RD FLOOR.
[2019-05-10 01:10] LABS: MEAN CORPUSCULAR HEMOGLOBIN 30.6 pg (27.0-34.8); MEAN CORPUSCULAR HGB CONC 32.4 g/dL (32.4-35.8); MEAN CORPUSCULAR VOLUME 94.3 fL (80-100); MEAN PLATELET VOLUME 8.4 fL (7.4-10.4); PLATELET COUNT 446 x10^3/uL (130-400); RED BLOOD COUNT 4.35 x10^6/uL (3.82-5.3)
[2019-05-10 01:12] LABS: MD YES
[2019-05-10 01:15] LABS: ALANINE AMINOTRANSFERASE 133 U/L (12-78); ALBUMIN 2.9 g/dL (3.4-5.0); ANION GAP 6 mmol/L (5-15); CALCIUM 8.4 mg/dL (8.5-10.1); CHLORIDE 111 mmol/L (98-107); CREATININE 0.69 mg/dL (0.55-1.02)
[2019-05-10 01:17] LABS: ALKALINE PHOSPHATASE 260 U/L (45-117); BILIRUBIN,TOTAL 0.3 mg/dL (0.2-1.0); TOTAL PROTEIN 7.8 g/dL (6.4-8.2)
[2019-05-10] MEDS: NICOTINE 7 MG/24 HR PATCH.TD24 TD SCH (01:24)
[2019-05-10] MEDS: HYDROmorphone 2 MG/ML, 1ML IVPush PRN ×9 (01:24→21:52)
[2019-05-10] MEDS: HEPARIN 5,000 UNITS/ML, 1ML SQ SCH ×4 (01:26→23:30)
[2019-05-10 01:35] LABS: SALICYLATE LEVEL < 1.7 mg/dL (2.8-20.0)
[2019-05-10 02:02] LABS: BAND#(MANUAL) 0.64 x10^3/uL; BANDS%(MANUAL) 3 % (0-7); LYMPH#(MANUAL) 0.86 x10^3/uL (1-3.4); LYMPHS% (MANUAL) 4 % (22-44); MONOS#(MANUAL) 0.64 x10^3/uL (0.3-2.7); MONOS% (MANUAL) 3 % (2-9); SEG#(MANUAL) 19.26 x10^3/uL (1.8-6.8); SEGS% (MANUAL) 90 % (42-75)
[2019-05-10 02:04] LABS: <PLATELET ESTIMATE> INCREASED; <PLT MORPHOLOGY> NORMAL PLT MORPH; ANISOCYTOSIS 1+; POLYCHROMASIA 1+
[2019-05-10] MEDS ORDERED: LIDODERM REMOVE PATCH NOTE XX SCH (02:30)
[2019-05-10 02:52] LABS: AMPHETAMINE SCREEN, URINE Negative (Negative); BARBITURATE SCREEN, URINE Negative (Negative); BENZODIAZEPINE SCREEN, URINE Negative (Negative); CANNABINOID SCREEN, URINE Negative (Negative); COCAINE SCREEN, URINE Negative (Negative); METHADONE SCREEN, URINE Negative (Negative); OPIATE SCREEN, URINE Positive (Negative)
[2019-05-10] MEDS: LIDODERM 5% PATCH TD SCH (03:09)
[2019-05-10] MEDS: SODIUM CHLORIDE 0.9% 1,000 ML IV SCH ×3 (05:19→19:45)
[2019-05-10 07:03] VITALS: BP 137/82
[2019-05-10] MEDS: DULOXETINE 30 MG CAPSULE.DR PO SCH ×2 (09:00→09:16)
[2019-05-10 12:24] VITALS: BP 133/81
[2019-05-10] MEDS: LIDODERM REMOVE PATCH NOTE XX SCH (14:00)
--- NOTE | 2019-05-10 14:34 | NUR ---
TF recommendation if needed: GOAL: Osmolite 1.2 @ 55 ml/hr continuous IF NO PO INTAKE. Water flush 125 ml q 6 hours IF NO IVF OR PO INTAKE. GOAL IF PO INTAKE: Osmolite 1.2 @ 55 ml/hr [id number]. Water flush 70 ml q 6 hours with goal intake of 16-17 oz water/fluid PO. Recommend start at 10 ml/hr and increase gradually to goal to monitor for tolerance. Addendum: 05/10/19 at [address] Amended: Links added.
[2019-05-10 14:52] LABS: BASOPHILS # (AUTO) 0.08 x10^3/uL (0-0.1); BASOPHILS % (AUTO) 1 % (0-1); EOSINOPHILS % (AUTO) 0 % (1-7); LYMPHOCYTES # (AUTO) 1.17 x10^3/uL (1-3.4); LYMPHOCYTES % (AUTO) 8 % (22-44); MEAN CORPUSCULAR HEMOGLOBIN 30.1 pg (27.0-34.8); MEAN CORPUSCULAR HGB CONC 32.3 g/dL (32.4-35.8); MEAN CORPUSCULAR VOLUME 93.3 fL (80-100); MEAN PLATELET VOLUME 8.1 fL (7.4-10.4); MONOCYTES # (AUTO) 0.78 x10^3/uL (0.2-0.8); MONOCYTES % (AUTO) 6 % (2-9); NEUTROPHILS # (AUTO) 12.16 x10^3/uL (1.8-6.8); NEUTROPHILS % (AUTO) 86 % (42-75); PLATELET COUNT 435 x10^3/uL (130-400); RED BLOOD COUNT 4.18 x10^6/uL (3.82-5.3); RED CELL DISTRIBUTION WIDTH 17.2 % (9.6-15.2)
[2019-05-10 14:53] LABS: MD NO
[2019-05-10] MEDS: OxyconTIN ER 20 MG TAB.ER PO SCH (16:30)
[2019-05-10] MEDS ORDERED: OxyconTIN ER 10 MG TAB.ER ONE (16:38)
[2019-05-10] MEDS ORDERED: PRAZOSIN 5 MG CAPSULE PO SCH (21:00)
[2019-05-10] MEDS ORDERED: BACLOFEN 10 MG TABLET PO SCH (21:00)
[2019-05-10 21:01] VITALS: BP 125/78
[2019-05-11] MEDS: HYDROmorphone 2 MG/ML, 1ML IVPush PRN ×9 (00:35→19:51)
[2019-05-11] MEDS: NICOTINE 7 MG/24 HR PATCH.TD24 TD SCH (00:51)
[2019-05-11 01:17] VITALS: BP 116/67
[2019-05-11] MEDS: LIDODERM 5% PATCH TD SCH (02:30)
[2019-05-11] MEDS ORDERED: OxyconTIN ER 10 MG TAB.ER ONE ×2 (04:19→16:51)
[2019-05-11] MEDS: OxyconTIN ER 20 MG TAB.ER PO SCH ×2 (04:25→16:30)
[2019-05-11] MEDS: SODIUM CHLORIDE 0.9% 1,000 ML IV SCH (04:25)
[2019-05-11 06:15] LABS: BASOPHILS # (AUTO) 0.01 x10^3/uL (0-0.1); BASOPHILS % (AUTO) 0 % (0-1); EOSINOPHILS # (AUTO) 0.09 x10^3/uL (0-0.4); EOSINOPHILS % (AUTO) 1 % (1-7); LYMPHOCYTES # (AUTO) 1.96 x10^3/uL (1-3.4); LYMPHOCYTES % (AUTO) 19 % (22-44); MD NO; MEAN CORPUSCULAR HEMOGLOBIN 30.5 pg (27.0-34.8); MEAN CORPUSCULAR HGB CONC 32.6 g/dL (32.4-35.8); MEAN CORPUSCULAR VOLUME 93.7 fL (80-100); MEAN PLATELET VOLUME 8.4 fL (7.4-10.4); MONOCYTES # (AUTO) 1.01 x10^3/uL (0.2-0.8); MONOCYTES % (AUTO) 10 % (2-9); NEUTROPHILS # (AUTO) 7.14 x10^3/uL (1.8-6.8); NEUTROPHILS % (AUTO) 70 % (42-75); PLATELET COUNT 350 x10^3/uL (130-400); RED BLOOD COUNT 3.71 x10^6/uL (3.82-5.3); RED CELL DISTRIBUTION WIDTH 16.5 % (9.6-15.2)
[2019-05-11 06:29] LABS: ALANINE AMINOTRANSFERASE 80 U/L (12-78); ALBUMIN 2.4 g/dL (3.4-5.0); ANION GAP 4 mmol/L (5-15); CALCIUM 7.7 mg/dL (8.5-10.1); CHLORIDE 117 mmol/L (98-107); CREATININE 0.61 mg/dL (0.55-1.02)
[2019-05-11 06:31] LABS: ALKALINE PHOSPHATASE 187 U/L (45-117); BILIRUBIN,TOTAL 0.4 mg/dL (0.2-1.0); TOTAL PROTEIN 6.4 g/dL (6.4-8.2)
[2019-05-11] MEDS: HEPARIN 5,000 UNITS/ML, 1ML SQ SCH ×2 (07:30→15:19)
[2019-05-11] MEDS: DULOXETINE 30 MG CAPSULE.DR PO SCH (08:44)
[2019-05-11 08:45] VITALS: BP 124/76
[2019-05-11 13:55] VITALS: BP 101/62
[2019-05-11] MEDS: LIDODERM REMOVE PATCH NOTE XX SCH (14:00)
[2019-05-11 19:21] VITALS: BP 111/69
[2019-05-11] MEDS ORDERED: SODIUM CHLORIDE 0.9% 1,000 ML IV SCH (23:30)
== END 2019-05-11 20:31 | disposition left against medical advice (07) | DRG 391 ==
LOC: ED 20:55 → EDIP 22:33 → 3N 23:30
PROVIDERS: ADMIT Family Medicine; ATTEND Family Medicine
PROC: 0T9B70Z Drainage of Bladder with Drainage Device, Via Natural or Artificial Opening (ICD-10-PCS; principal; 2019-05-09)
DX: A08.4 Viral intestinal infection, unspecified (principal); K85.90 Acute pancreatitis without necrosis or infection, unspecified; F19.20 Other psychoactive substance dependence, uncomplicated; G12.9 Spinal muscular atrophy, unspecified; N13.30 Unspecified hydronephrosis; E86.0 Dehydration; F17.210 Nicotine dependence, cigarettes, uncomplicated; Z53.29 Procedure and treatment not carried out because of patient's decision for other reasons; Z88.6 Allergy status to analgesic agent; Z88.5 Allergy status to narcotic agent; F41.1 Generalized anxiety disorder; I25.10 Atherosclerotic heart disease of native coronary artery without angina pectoris; K76.0 Fatty (change of) liver, not elsewhere classified; Z82.62 Family history of osteoporosis
CPT/HCPCS: 36415; 74177; 76700; 80053; 80074; 80307; 81001; 83605; 83690; 83735; 84100; 84703; 85025; 87040; 87324; 89055; 93005; 96361; 96372; 96374; G0378; J1170; J2405; J2550; Q9967; J7030; Q0177

== ENCOUNTER → 2019-06-10 | Outpatient (CLI) | payer BC, MEDICARE ==
[~2019-06-10] MED LIST changes: +GADOTERATE 10 MMOL/20 ML VIAL ONE; +HYDROMORPHONE; +OXYC80TA25 PO
== END | disposition home or self-care (01) ==
LOC: CFH 07:39
PROVIDERS: ATTEND Student in an Organized Health Care Education/Training Program
DX: K76.0 Fatty (change of) liver, not elsewhere classified (principal); I86.2 Pelvic varices; I87.1 Compression of vein
CPT/HCPCS: 74183; A9575

== ENCOUNTER 2019-08-19 01:24 | Inpatient (IN) | payer BC, MEDICARE ==
[~2019-08-19] VITALS: Ht 175.3 cm; Wt 54.6 kg
[~2019-08-19 01:24] MED LIST changes: -GADOTERATE 10 MMOL/20 ML VIAL ONE
[2019-08-19] MEDS ORDERED: HYDROmorphone 1 MG/ML, 1ML INJ IV ONE ×2 (02:00→03:30)
[2019-08-19] MEDS ORDERED: ONDANSETRON 2MG/ML, 2ML IVPush ONE ×2 (02:00→03:30)
[2019-08-19] MEDS ORDERED: LORazepam 2 MG/ML, 1ML IVPush ONE (02:00)
--- NOTE | 2019-08-19 02:14 | NUR ---
TASK RN: FIRST CONTACT WITH PT. PT LAYING SUPINE IN GABBIE ELLER. PT WITH CONSISTANT WHIMPERING SECONDARY TO PAIN. NON-TOXIC APPEARING PATIENT WITH EXTENSIVE ABD HISTORY INCLUDING J-TUBE PLACEMENT. PT REPORTS SEVERE ABD PAIN X THREE WEEKS, WORSENING TODAY. +N/V. IV ESTABLISHED, LABS DRAWN. BP/SPO2 MONITORING IN PLACE. POC IS ADMIT FOR PAIN CONTROL. PT UPDATED AND DEMONSTRATES UNDERSTANDING.
[2019-08-19 02:16] LABS: BASOPHILS # (AUTO) 0.02 x10^3/uL (0-0.1); BASOPHILS % (AUTO) 0 % (0-1); EOSINOPHILS # (AUTO) 0.32 x10^3/uL (0-0.4); EOSINOPHILS % (AUTO) 4 % (1-7); LYMPHOCYTES # (AUTO) 1.07 x10^3/uL (1-3.4); LYMPHOCYTES % (AUTO) 12 % (22-44); MD NO; MEAN CORPUSCULAR HEMOGLOBIN 29.1 pg (27.0-34.8); MEAN CORPUSCULAR HGB CONC 32.6 g/dL (32.4-35.8); MEAN CORPUSCULAR VOLUME 89.2 fL (80-100); MEAN PLATELET VOLUME 8.3 fL (7.4-10.4); MONOCYTES # (AUTO) 0.98 x10^3/uL (0.2-0.8); MONOCYTES % (AUTO) 11 % (2-9); NEUTROPHILS # (AUTO) 6.66 x10^3/uL (1.8-6.8); NEUTROPHILS % (AUTO) 74 % (42-75); PLATELET COUNT 251 x10^3/uL (130-400); RED BLOOD COUNT 3.83 x10^6/uL (3.82-5.3); RED CELL DISTRIBUTION WIDTH 18.9 % (9.6-15.2)
[2019-08-19 02:21] LABS: HCG UR SG 1.025 (1.003-1.030); MICROSCOPIC NOT IND
[2019-08-19] MEDS ORDERED: ONDANSETRON 2MG/ML, 2ML ONE (02:21)
[2019-08-19] MEDS ORDERED: LORazepam 2 MG/ML, 1ML ONE (02:21)
[2019-08-19] MEDS ORDERED: HYDROmorphone 1 MG/ML, 1ML INJ ONE ×2 (02:21→03:43)
[2019-08-19 02:22] LABS: CULTURE INDICATED? NO
--- NOTE | 2019-08-19 02:22 | NUR ---
REPORT TO PRIMARY RNNATY
[2019-08-19 02:28] LABS: ANION GAP 7 mmol/L (5-15); CALCIUM 8.1 mg/dL (8.5-10.1); CHLORIDE 106 mmol/L (98-107)
[2019-08-19 02:31] LABS: ALANINE AMINOTRANSFERASE 143 U/L (12-78); ALKALINE PHOSPHATASE 183 U/L (45-117); BILIRUBIN,TOTAL 0.2 mg/dL (0.2-1.0); CREATININE 0.67 mg/dL (0.55-1.02)
--- NOTE | 2019-08-19 02:31 | NUR ---
Pt reports a new surgeon, Dr. Ponce with [facility].
--- NOTE | 2019-08-19 02:34 | NUR ---
Assumed care of pt. Pt reports home meds of dilaudid and oxycontin PO. Pt reports 1mg IM injections of oxytocin for home use per pain med MD. Last dose 2 weeks ago. Pt reports she used to be on ketamine. Pt medicated per AUG. Pt on pulse ox/HR.
[2019-08-19] MEDS ORDERED: [UNRECOGNIZED DRUG - CODE] IM (02:37)
[2019-08-19] MEDS ORDERED: SODIUM CHLORIDE FLUSH 10ML SYR IVF ONE (03:00)
[2019-08-19] MEDS ORDERED: SODIUM CHLORIDE 0.9% 1,000ML IVBOLUS ONE (03:00)
[2019-08-19] MEDS ORDERED: ONDANSETRON ODT 4 MG PO PRN (03:30)
[2019-08-19] MEDS ORDERED: ONDANSETRON 2MG/ML, 2ML IVPush PRN (03:30)
[2019-08-19] MEDS ORDERED: LABETALOL 5MG/ML, 20ML IVPush PRN (03:30)
[2019-08-19] MEDS ORDERED: KETOROLAC 30 MG/1 ML IV PRN (03:30)
[2019-08-19] MEDS ORDERED: HYDROmorphone 2 MG/ML, 1ML IVPush PRN (03:30)
[2019-08-19] MEDS ORDERED: OXYcodone IR 5MG TABLET PO PRN (03:30)
[2019-08-19] MEDS ORDERED: IBUPROFEN 600 MG TABLET PO PRN (03:30)
[2019-08-19] MEDS ORDERED: NICOTINE 7 MG/24 HR PATCH.TD24 TD SCH (03:30)
[2019-08-19] MEDS ORDERED: ENALAPRILAT 1.25 MG/ML, 2ML IVPush PRN (03:30)
[2019-08-19] MEDS ORDERED: BACLOFEN 10 MG TABLET PO PRN (03:30)
--- NOTE | 2019-08-19 03:49 | NUR ---
Report given to KURT Fatima NS started. 1mg dilaudid given. Pt remains on pulse ox/HR monitor.
[2019-08-19] MEDS ORDERED: HYOSCYAMINE 0.125 MG TAB.SUBL SL PRN (04:00)
[2019-08-19] MEDS ORDERED: KETAMINE PO PRN (04:00)
[2019-08-19] MEDS ORDERED: ONDANSETRON 4 MG TABLET JT PRN (04:00)
--- NOTE | 2019-08-19 04:05 | NUR ---
At time of admit, pt alert and oriented. Pt on RA.
[2019-08-19 04:50] VITALS: BP 115/77
[2019-08-19] MEDS: HEPARIN 5,000 UNITS/ML, 1ML SQ SCH ×2 (05:02→15:14)
[2019-08-19] MEDS: SODIUM CHLORIDE 0.9% 1,000 ML IV SCH ×2 (05:26→13:30)
[2019-08-19] MEDS ORDERED: POTASSIUM CHLORIDE 20 MEQ in SODIUM CHLORIDE 0.9% 250 ML IV ONE (06:30)
[2019-08-19 07:20] VITALS: BP 119/77
[2019-08-19] MEDS ORDERED: HYDROmorphone 4MG TABLET PO SCH (08:00)
[2019-08-19] MEDS ORDERED: HYDROmorphone 2MG TABLET ONE (08:25)
[2019-08-19] MEDS ORDERED: OxyconTIN ER 10 MG TAB.ER ONE (08:25)
[2019-08-19] MEDS ORDERED: OXYTOCIN 10 UNITS/ML, 1ML IM SCH (09:00)
[2019-08-19] MEDS ORDERED: OxyconTIN ER 20 MG TAB.ER PO SCH (09:00)
[2019-08-19] MEDS ORDERED: DULOXETINE 30 MG CAPSULE.DR PO SCH (09:00)
[2019-08-19] MEDS ORDERED: HYDROmorphone 2MG TABLET PO SCH (09:06)
[2019-08-19] MEDS ORDERED: OMNIPAQUE 350 MG/ML, 100ML BOTTLE ONE (10:50)
[2019-08-19 10:55] LABS: AMPHETAMINE SCREEN, URINE Negative (Negative); BARBITURATE SCREEN, URINE Negative (Negative); BENZODIAZEPINE SCREEN, URINE Positive (Negative); CANNABINOID SCREEN, URINE Negative (Negative); COCAINE SCREEN, URINE Negative (Negative); METHADONE SCREEN, URINE Negative (Negative); OPIATE SCREEN, URINE Positive (Negative)
[2019-08-19 13:02] VITALS: BP 99/66
[2019-08-19] MEDS ORDERED: PRAZOSIN 5 MG CAPSULE PO SCH (21:00)
[2019-08-19] MEDS ORDERED: BACLOFEN 10 MG TABLET PO SCH (21:00)
[2019-08-19] MEDS ORDERED: OxyconTIN ER 10 MG TAB.ER PO SCH (21:00)
== END 2019-08-19 17:15 | disposition home or self-care (01) | DRG 394 ==
LOC: ED 03:19 → EDIP 04:43 → 3N 04:44 → DCLOUNGE 16:53
PROVIDERS: ADMIT Family Medicine; ATTEND Family Medicine
DX: K55.1 Chronic vascular disorders of intestine (principal); F11.20 Opioid dependence, uncomplicated; Z68.1 Body mass index [BMI] 19.9 or less, adult; E46 Unspecified protein-calorie malnutrition; F17.210 Nicotine dependence, cigarettes, uncomplicated; G89.29 Other chronic pain; D64.9 Anemia, unspecified; F32.9 Major depressive disorder, single episode, unspecified; K76.0 Fatty (change of) liver, not elsewhere classified; F41.1 Generalized anxiety disorder; F43.10 Post-traumatic stress disorder, unspecified; Z82.49 Family history of ischemic heart disease and other diseases of the circulatory system; Z84.89 Family history of other specified conditions; Z82.62 Family history of osteoporosis; Z90.49 Acquired absence of other specified parts of digestive tract; Z88.5 Allergy status to narcotic agent
CPT/HCPCS: 36415; 74177; 80053; 80307; 81003; 81025; 83605; 83690; 83735; 84100; 85025; J1170; J2405; Q9967; J2060; J7030; Q0177

== ENCOUNTER 2019-10-15 13:28 | Inpatient (IN) | payer BC, MEDICARE ==
[~2019-10-15] VITALS: Ht 175.3 cm; Wt 60.1 kg
[~2019-10-15 13:28] MED LIST changes: +[UNRECOGNIZED DRUG - CODE] IM
[2019-10-15] MEDS ORDERED: SODIUM CHLORIDE 0.9% 1,000 ML IV ONE (13:38)
[2019-10-15] MEDS ORDERED: SODIUM CHLORIDE FLUSH 10ML SYR IVF ONE (14:00)
[2019-10-15] MEDS ORDERED: PREG75CA PO (14:11)
[2019-10-15] MEDS ORDERED: DOXE25CA PO (14:11)
[2019-10-15 14:15] LABS: BASOPHILS # (AUTO) 0.05 x10^3/uL (0-0.1); BASOPHILS % (AUTO) 1 % (0-1); EOSINOPHILS # (AUTO) 0.18 x10^3/uL (0-0.4); EOSINOPHILS % (AUTO) 2 % (1-7); LYMPHOCYTES # (AUTO) 2.51 x10^3/uL (1-3.4); LYMPHOCYTES % (AUTO) 25 % (22-44); MD NO; MEAN CORPUSCULAR HEMOGLOBIN 28.1 pg (27.0-34.8); MEAN CORPUSCULAR HGB CONC 32.6 g/dL (32.4-35.8); MEAN PLATELET VOLUME 8.1 fL (7.4-10.4); MONOCYTES # (AUTO) 1.06 x10^3/uL (0.2-0.8); MONOCYTES % (AUTO) 11 % (2-9); NEUTROPHILS # (AUTO) 6.11 x10^3/uL (1.8-6.8); NEUTROPHILS % (AUTO) 62 % (42-75); PLATELET COUNT 358 x10^3/uL (130-400); RED BLOOD COUNT 4.86 x10^6/uL (3.82-5.3); RED CELL DISTRIBUTION WIDTH 17.6 % (9.6-15.2)
[2019-10-15 14:28] LABS: ALANINE AMINOTRANSFERASE 35 U/L (12-78); ALBUMIN 3.6 g/dL (3.4-5.0); ANION GAP 6 mmol/L (5-15); CALCIUM 8.4 mg/dL (8.5-10.1); CHLORIDE 104 mmol/L (98-107)
[2019-10-15 14:31] LABS: ALKALINE PHOSPHATASE 152 U/L (45-117); BILIRUBIN,TOTAL 0.3 mg/dL (0.2-1.0)
--- NOTE | 2019-10-15 15:31 | NUR ---
TASK RN, COVERING MEAL BREAK. VSS/UPDATED IN COMPUTER. PT ASSISTED UP TO BR. PT AMBULATED WITH STEADY GAIT TO BR.
--- NOTE | 2019-10-15 15:37 | NUR ---
URINE COLLECTED/SENT TO LAB.
[2019-10-15 15:52] LABS: MICROSCOPIC NOT IND
[2019-10-15] MEDS ORDERED: LIDODERM 5% PATCH TD PRN (16:00)
[2019-10-15] MEDS ORDERED: ONDANSETRON 2MG/ML, 2ML IVPush PRN (16:00)
[2019-10-15] MEDS ORDERED: hydrALAzine 20 MG/ML, 1ML IVPush PRN (16:00)
[2019-10-15] MEDS ORDERED: HYDROmorphone 2 MG/ML, 1ML IVPush PRN (16:00)
[2019-10-15] MEDS ORDERED: LABETALOL 5MG/ML, 20ML IVPush PRN (16:00)
[2019-10-15 16:09] LABS: CULTURE INDICATED? NO
[2019-10-15] MEDS ORDERED: PLEASE ENTER HEIGHT AND WEIGHT MC SCH (16:30)
--- NOTE | 2019-10-15 17:12 | NUR ---
Pt resting eyes closed. No s/s of pain. No vomiting since arrival. No distress noted. VSS. Bed in low position, call light within reach. No needs at this time.
[2019-10-15] MEDS: ENOXAPARIN 30 MG/0.3 ML SQ SCH (17:39)
[2019-10-15] MEDS: D5%-0.45NACL+KCL 20MEQ 1,000 ML IV SCH (17:39)
[2019-10-15] MEDS ORDERED: HYDROmorphone 2 MG/ML, 1ML ONE (17:41)
--- NOTE | 2019-10-15 18:06 | NUR ---
Pt to be admitted to MEDICAL, room 364 . Report called to IDRIS FOR CRAIG
[2019-10-15] MEDS: HYDROmorphone 2 MG/ML, 1ML IVPush PRN (21:21)
[2019-10-15 21:43] VITALS: BP 130/78
[2019-10-16] VITALS (9 sets, daily range): BP systolic 93–128; BP diastolic 63–80
[2019-10-16] MEDS: HYDROmorphone 2 MG/ML, 1ML IVPush PRN ×7 (01:01→23:50)
[2019-10-16] MEDS: D5%-0.45NACL+KCL 20MEQ 1,000 ML IV SCH ×3 (01:31→23:50)
[2019-10-16] MEDS: ENOXAPARIN 30 MG/0.3 ML SQ SCH ×2 (04:55→15:58)
[2019-10-16 06:17] LABS: CHLORIDE 105 mmol/L (98-107)
[2019-10-16 06:24] LABS: ALANINE AMINOTRANSFERASE 27 U/L (12-78); ALBUMIN 2.9 g/dL (3.4-5.0); ALKALINE PHOSPHATASE 123 U/L (45-117); ANION GAP 6 mmol/L (5-15); BILIRUBIN,TOTAL 0.4 mg/dL (0.2-1.0); CREATININE 0.66 mg/dL (0.55-1.02); TOTAL PROTEIN 6.5 g/dL (6.4-8.2)
[2019-10-16 06:29] LABS: MEAN CORPUSCULAR HGB CONC 32.2 g/dL (32.4-35.8); MEAN PLATELET VOLUME 8.2 fL (7.4-10.4); PLATELET COUNT 276 x10^3/uL (130-400); RED BLOOD COUNT 4.29 x10^6/uL (3.82-5.3); RED CELL DISTRIBUTION WIDTH 17.6 % (9.6-15.2)
[2019-10-16 06:52] LABS: MD YES
[2019-10-16 06:58] LABS: EOS#(MANUAL) 0.29 x10^3/uL (0.0-0.4); EOS% (MANUAL) 6 % (1-7); LYMPH#(MANUAL) 2.35 x10^3/uL (1-3.4); LYMPHS% (MANUAL) 49 % (22-44); MONOS#(MANUAL) 0.58 x10^3/uL (0.3-2.7); MONOS% (MANUAL) 12 % (2-9); SEG#(MANUAL) 1.58 x10^3/uL (1.8-6.8); SEGS% (MANUAL) 33 % (42-75)
[2019-10-16 06:59] LABS: <PLATELET ESTIMATE> ADEQUATE; <PLT MORPHOLOGY> NORMAL PLT MORPH; ANISOCYTOSIS 1+
[2019-10-16] MEDS: PANTOPRAZOLE 40 MG IV IVPush SCH (09:56)
[2019-10-16] MEDS: ONDANSETRON 2MG/ML, 2ML IVPush PRN ×2 (10:53→15:47)
[2019-10-16] MEDS ORDERED: OMNIPAQUE 350 MG/ML, 100ML BOTTLE ONE (13:37)
[2019-10-16] MEDS: LORazepam 2 MG/ML, 1ML IVPush PRN ×3 (14:10→23:05)
[2019-10-16] MEDS ORDERED: FLUCONAZOLE 100 MG TABLET PO ONE (16:30)
[2019-10-17 00:15] VITALS: BP 103/72
[2019-10-17] MEDS: HYDROmorphone 2 MG/ML, 1ML IVPush PRN ×6 (03:35→20:03)
[2019-10-17] MEDS: ONDANSETRON 2MG/ML, 2ML IVPush PRN ×4 (03:35→18:44)
[2019-10-17] MEDS: ENOXAPARIN 30 MG/0.3 ML SQ SCH ×2 (04:56→16:50)
[2019-10-17 05:52] LABS: ALANINE AMINOTRANSFERASE 27 U/L (12-78); ALBUMIN 3.2 g/dL (3.4-5.0); ANION GAP 6 mmol/L (5-15); CALCIUM 7.9 mg/dL (8.5-10.1); CHLORIDE 107 mmol/L (98-107); CREATININE 0.62 mg/dL (0.55-1.02)
[2019-10-17 05:54] LABS: ALKALINE PHOSPHATASE 125 U/L (45-117); BILIRUBIN,TOTAL 0.3 mg/dL (0.2-1.0); TOTAL PROTEIN 6.7 g/dL (6.4-8.2)
[2019-10-17 06:08] LABS: MEAN CORPUSCULAR HEMOGLOBIN 27.9 pg (27.0-34.8); MEAN CORPUSCULAR HGB CONC 31.7 g/dL (32.4-35.8); MEAN CORPUSCULAR VOLUME 87.8 fL (80-100); MEAN PLATELET VOLUME 8.4 fL (7.4-10.4); PLATELET COUNT 293 x10^3/uL (130-400); RED BLOOD COUNT 4.16 x10^6/uL (3.82-5.3); RED CELL DISTRIBUTION WIDTH 17.8 % (9.6-15.2)
[2019-10-17 06:29] LABS: BASOPHILS # (AUTO) 0.04 x10^3/uL (0-0.1); BASOPHILS % (AUTO) 1 % (0-1); EOSINOPHILS # (AUTO) 0.37 x10^3/uL (0-0.4); EOSINOPHILS % (AUTO) 5 % (1-7); LYMPHOCYTES # (AUTO) 1.86 x10^3/uL (1-3.4); LYMPHOCYTES % (AUTO) 24 % (22-44); MD SCAN; MONOCYTES # (AUTO) 0.82 x10^3/uL (0.2-0.8); MONOCYTES % (AUTO) 10 % (2-9); NEUTROPHILS # (AUTO) 4.81 x10^3/uL (1.8-6.8); NEUTROPHILS % (AUTO) 61 % (42-75)
[2019-10-17] MEDS: PANTOPRAZOLE 40 MG IV IVPush SCH (07:18)
[2019-10-17 07:52] VITALS: BP 102/62
[2019-10-17] MEDS: D5%-0.45NACL+KCL 20MEQ 1,000 ML IV SCH ×2 (08:49→16:50)
[2019-10-17] MEDS: LORazepam 2 MG/ML, 1ML IVPush PRN ×4 (08:59→23:21)
[2019-10-17 14:28] VITALS: BP 101/63
[2019-10-17 18:52] VITALS: BP 110/68
[2019-10-18 00:25] VITALS: BP 101/66
[2019-10-18] MEDS: HYDROmorphone 2 MG/ML, 1ML IVPush PRN ×3 (00:27→08:42)
[2019-10-18] MEDS: D5%-0.45NACL+KCL 20MEQ 1,000 ML IV SCH ×2 (01:13→10:56)
[2019-10-18] MEDS: ENOXAPARIN 30 MG/0.3 ML SQ SCH ×2 (05:00→17:01)
[2019-10-18 05:16] LABS: BASOPHILS # (AUTO) 0.02 x10^3/uL (0-0.1); BASOPHILS % (AUTO) 0 % (0-1); EOSINOPHILS # (AUTO) 0.28 x10^3/uL (0-0.4); EOSINOPHILS % (AUTO) 5 % (1-7); LYMPHOCYTES % (AUTO) 13 % (22-44); MD NO; MEAN CORPUSCULAR HEMOGLOBIN 28.1 pg (27.0-34.8); MEAN CORPUSCULAR VOLUME 87.8 fL (80-100); MEAN PLATELET VOLUME 8.6 fL (7.4-10.4); MONOCYTES # (AUTO) 0.28 x10^3/uL (0.2-0.8); MONOCYTES % (AUTO) 5 % (2-9); NEUTROPHILS # (AUTO) 4.05 x10^3/uL (1.8-6.8); NEUTROPHILS % (AUTO) 76 % (42-75); PLATELET COUNT 222 x10^3/uL (130-400); RED BLOOD COUNT 3.67 x10^6/uL (3.82-5.3); RED CELL DISTRIBUTION WIDTH 18.3 % (9.6-15.2)
[2019-10-18 05:26] LABS: ALBUMIN 2.9 g/dL (3.4-5.0); ANION GAP 3 mmol/L (5-15); CALCIUM 8.1 mg/dL (8.5-10.1); CHLORIDE 107 mmol/L (98-107)
[2019-10-18 05:39] LABS: ALANINE AMINOTRANSFERASE 44 U/L (12-78); ALKALINE PHOSPHATASE 123 U/L (45-117); BILIRUBIN,TOTAL 0.4 mg/dL (0.2-1.0); CREATININE 0.63 mg/dL (0.55-1.02); TOTAL PROTEIN 6.2 g/dL (6.4-8.2)
[2019-10-18 06:42] VITALS: BP 100/65
[2019-10-18] MEDS: PANTOPRAZOLE 40 MG IV IVPush SCH (08:41)
[2019-10-18] MEDS: LORazepam 2 MG/ML, 1ML IVPush PRN (10:56)
[2019-10-18] MEDS ORDERED: MAGNESIUM SULFATE PMX 4GM/100M 100 ML IV ONE (11:00)
[2019-10-18 12:44] VITALS: BP 115/69
[2019-10-18] MEDS: OxyconTIN ER 40 MG TAB.ER PO SCH ×3 (13:08→20:40)
[2019-10-18 19:12] VITALS: BP 104/68
[2019-10-19 00:03] VITALS: BP 105/69
[2019-10-19] MEDS: HYDROmorphone 2 MG/ML, 1ML IVPush PRN ×3 (00:04→12:42)
[2019-10-19] MEDS: LORazepam 2 MG/ML, 1ML IVPush PRN (03:03)
[2019-10-19] MEDS: ENOXAPARIN 30 MG/0.3 ML SQ SCH (04:03)
[2019-10-19 06:04] LABS: BASOPHILS # (AUTO) 0.01 x10^3/uL (0-0.1); BASOPHILS % (AUTO) 0 % (0-1); EOSINOPHILS % (AUTO) 10 % (1-7); LYMPHOCYTES # (AUTO) 1.21 x10^3/uL (1-3.4); LYMPHOCYTES % (AUTO) 24 % (22-44); MD NO; MEAN CORPUSCULAR HEMOGLOBIN 28.4 pg (27.0-34.8); MEAN CORPUSCULAR HGB CONC 32.6 g/dL (32.4-35.8); MEAN CORPUSCULAR VOLUME 87.3 fL (80-100); MEAN PLATELET VOLUME 8.8 fL (7.4-10.4); MONOCYTES # (AUTO) 0.84 x10^3/uL (0.2-0.8); MONOCYTES % (AUTO) 17 % (2-9); NEUTROPHILS # (AUTO) 2.42 x10^3/uL (1.8-6.8); NEUTROPHILS % (AUTO) 49 % (42-75); PLATELET COUNT 239 x10^3/uL (130-400); RED BLOOD COUNT 3.62 x10^6/uL (3.82-5.3); RED CELL DISTRIBUTION WIDTH 18.8 % (9.6-15.2)
[2019-10-19 06:09] LABS: ANION GAP 4 mmol/L (5-15); CALCIUM 7.9 mg/dL (8.5-10.1); CHLORIDE 106 mmol/L (98-107); CREATININE 0.66 mg/dL (0.55-1.02)
[2019-10-19 07:49] VITALS: BP 101/71
[2019-10-19] MEDS ORDERED: OxyconTIN ER 20 MG TAB.ER ONE (08:32)
[2019-10-19] MEDS: PANTOPRAZOLE 40 MG IV IVPush SCH (08:37)
[2019-10-19] MEDS: OxyconTIN ER 40 MG TAB.ER PO SCH ×2 (08:46→16:34)
[2019-10-19 14:12] VITALS: BP 101/69
[2019-10-19] MEDS: ONDANSETRON 2MG/ML, 2ML IVPush PRN (15:02)
== END 2019-10-19 16:52 | disposition home or self-care (01) | DRG 392 ==
LOC: ED 14:34 → EDIP 14:40 → 3N 18:13
PROVIDERS: ADMIT Family Medicine; ATTEND Family Medicine
DX: R10.9 Unspecified abdominal pain (principal); F19.20 Other psychoactive substance dependence, uncomplicated; E83.42 Hypomagnesemia; E87.6 Hypokalemia; F17.210 Nicotine dependence, cigarettes, uncomplicated; F32.9 Major depressive disorder, single episode, unspecified; F41.9 Anxiety disorder, unspecified; G89.29 Other chronic pain; I25.10 Atherosclerotic heart disease of native coronary artery without angina pectoris; M81.0 Age-related osteoporosis without current pathological fracture; Z66 Do not resuscitate; Z79.891 Long term (current) use of opiate analgesic; Z87.440 Personal history of urinary (tract) infections; Z90.49 Acquired absence of other specified parts of digestive tract; Z91.410 Personal history of adult physical and sexual abuse; Z88.6 Allergy status to analgesic agent; Z88.8 Allergy status to other drugs, medicaments and biological substances; Z88.5 Allergy status to narcotic agent; Z79.899 Other long term (current) drug therapy
CPT/HCPCS: 36415; 71045; 74021; 74177; 80048; 80053; 81003; 83690; 83735; 84100; 84443; 85025; 93005; 96361; 96374; 99285; G0378; J1170; J1650; J2405; Q9967; C9113; J2060; J3475; J3480; J7030

== ENCOUNTER 2020-01-07 00:43 | Emergency (ER) | payer BC, MEDICARE ==
[~2020-01-07] VITALS: Ht 175.3 cm; Wt 52.3 kg
[~2020-01-07 00:43] MED LIST changes: +DOXE25CA PO; +HYDR-3246 PO; -HYDR-36 PO; +PREG75CA PO
[2020-01-07] MEDS ORDERED: PROMETHAZINE 25 MG/ML, 1ML ONE (01:10)
[2020-01-07] MEDS ORDERED: ONDANSETRON 2MG/ML, 2ML ONE (01:11)
[2020-01-07] MEDS ORDERED: HYDROmorphone 1 MG/ML, 1ML INJ ONE (01:11)
[2020-01-07 01:20] VITALS: BP 125/77
--- NOTE | 2020-01-07 01:27 | NUR ---
BREAK RN: PT. RETURNED FROM X-RAY. MEDICATED PER MAR. LABS DRAWN. VS UPDATED. SPO2 AND B/P MONITORS IN PLACE. ALL SAFETY MEASURES OBSERVED.
[2020-01-07] MEDS ORDERED: PLEASE ENTER HEIGHT AND WEIGHT MC SCH (01:30)
[2020-01-07] MEDS ORDERED: SODIUM CHLORIDE 0.9% 1,000ML IVBOLUS ONE (01:30)
[2020-01-07] MEDS ORDERED: SODIUM CHLORIDE FLUSH 10ML SYR IVF ONE (01:30)
[2020-01-07] MEDS ORDERED: ONDANSETRON 2MG/ML, 2ML IVPush ONE (01:30)
[2020-01-07] MEDS ORDERED: PROMETHAZINE 25 MG/ML, 1ML IM ONE (01:30)
[2020-01-07] MEDS ORDERED: HYDROmorphone 2 MG/ML, 1ML IVPush PRN (01:30)
[2020-01-07] MEDS ORDERED: HYDROmorphone 1 MG/ML, 1ML INJ IVPush PRN (01:30)
[2020-01-07 01:46] LABS: ALANINE AMINOTRANSFERASE 206 U/L (12-78); ALBUMIN 2.6 g/dL (3.4-5.0); ANION GAP 8 mmol/L (5-15); CALCIUM 7.7 mg/dL (8.5-10.1); CHLORIDE 101 mmol/L (98-107); CREATININE 0.54 mg/dL (0.55-1.02)
[2020-01-07 01:50] LABS: BASOPHILS % (AUTO) 0 % (0-1); EOSINOPHILS # (AUTO) 0.08 x10^3/uL (0-0.4); EOSINOPHILS % (AUTO) 1 % (1-7); LYMPHOCYTES # (AUTO) 0.85 x10^3/uL (1-3.4); LYMPHOCYTES % (AUTO) 6 % (22-44); MD NO; MEAN CORPUSCULAR HEMOGLOBIN 27.8 pg (27.0-34.8); MEAN CORPUSCULAR HGB CONC 32.5 g/dL (32.4-35.8); MEAN PLATELET VOLUME 8.2 fL (7.4-10.4); MONOCYTES # (AUTO) 1.36 x10^3/uL (0.2-0.8); MONOCYTES % (AUTO) 10 % (2-9); NEUTROPHILS # (AUTO) 11.44 x10^3/uL (1.8-6.8); NEUTROPHILS % (AUTO) 83 % (42-75); PLATELET COUNT 333 x10^3/uL (130-400); RED BLOOD COUNT 3.92 x10^6/uL (3.82-5.3); RED CELL DISTRIBUTION WIDTH 19.1 % (9.6-15.2)
[2020-01-07 01:51] LABS: ALKALINE PHOSPHATASE 278 U/L (45-117); BILIRUBIN,TOTAL 0.7 mg/dL (0.2-1.0); TOTAL PROTEIN 7.4 g/dL (6.4-8.2)
[2020-03-07] MEDS ORDERED: MIRT-34 PO (19:10)
[2020-03-10] MEDS ORDERED: AMOX500T PO (11:30)
== END 2020-01-07 02:47 ==
LOC: ED 02:41
DX: G89.29 Other chronic pain (principal); R10.13 Epigastric pain; R10.11 Right upper quadrant pain; R19.7 Diarrhea, unspecified; R11.2 Nausea with vomiting, unspecified; R94.5 Abnormal results of liver function studies; Z90.49 Acquired absence of other specified parts of digestive tract; Z87.891 Personal history of nicotine dependence
CPT/HCPCS: 36415; 74022; 80053; 83690; 84703; 85025; 96361; 96372; 96374; 96375; 99284; J1170; J2405; J2550; J7030

== ENCOUNTER 2020-01-15 14:45 | Outpatient (CLI) | payer BC, MEDICARE ==
[2020-01-15] MEDS ORDERED: OMNIPAQUE 300 MG/ML, 10ML VIAL ONE (15:00)
== END 2020-01-15 23:59 | disposition home or self-care (01) ==
LOC: RAD 14:45
PROVIDERS: ATTEND Surgery
DX: Z43.1 Encounter for attention to gastrostomy (principal); F17.210 Nicotine dependence, cigarettes, uncomplicated; Z79.899 Other long term (current) drug therapy; Z72.89 Other problems related to lifestyle; Z88.5 Allergy status to narcotic agent; Z88.8 Allergy status to other drugs, medicaments and biological substances
CPT/HCPCS: 49465; 76080; Q9967; 74340